=== PATIENT | female | born 1970 | race African-American/Black ===

== ENCOUNTER 2017-02-03 11:03 | Inpatient (IN) | payer MEDICAID, OTHER ==
[~2017-02-03] VITALS: Ht 160 cm; Wt 82.8 kg
[2017-02-03] VITALS (9 sets, daily range): BP systolic 95–116; BP diastolic 65–77
[2017-02-03] MEDS ORDERED: SODIUM CHLORIDE 0.9% 1,000 ML IVB ONE (11:14)
[2017-02-03] MEDS ORDERED: NALOXONE HCL 0.4 MG/ML VIAL IV ONE (11:15)
[2017-02-03 11:38] LABS: Basophils # (auto) 0 uL; Basophils % (auto) 0.5 % (0.0-2.0); Eosinophils # (auto) 0.2 uL; Eosinophils % (auto) 2.3 % (0.0-7.0); Hematocrit 36.7 % (36.0-46.0); Hemoglobin 12.3 g/dL (12.2-16.2); Lymphocytes # (auto) 4.5 uL; Lymphocytes % (auto) 48.3 % (10.0-50.0); Mean Corpuscular Hemoglobin 31.3 pg (28.0-32.0); Mean Corpuscular Hgb Conc. 33.4 g/dL (32.0-36.0); Mean Corpuscular Volume 93.7 fL (80.0-100.0); Mean Platelet Volume 8.8 fL (7.4-10.4); Monocytes # (auto) 0.7 uL; Monocytes % (auto) 7.8 % (0.0-12.0); Neutrophils # (auto) 3.8 uL; Neutrophils % (auto) 41.1 % (37.0-80.0); Platelet Count (auto) 311 10^3/uL (140-450); Red Cell Distribution Width 13.9 % (11.6-16.0); White Blood Cell 9.2 10^3/uL (4.4-10.8)
[2017-02-03 11:51] LABS: Urine Bilirubin Negative (Negative); Urine Blood TRACE /uL (Negative); Urine Color Yellow (Yellow); Urine Glucose Normal (Normal); Urine Ketone Negative (Negative); Urine Mucus FEW (None Seen); Urine Nitrite Negative (Negative); Urine RBC 2 /hpf (0 - 4); Urine Squamous Epithelial Cell FEW /hpf (<5); Urine Urobilinogen Normal (Negative); Urine pH 5.5 (5.0-8.0)
[2017-02-03 11:52] LABS: Partial Thromboplastin Time 23.5 sec (22.64-33.71)
[2017-02-03 12:01] LABS: Lactic Acid w/Reflex 4.6 mmol/L (0.4-2.0)
[2017-02-03 12:09] LABS: Anion Gap 11 (5-15); BUN/Creatinine Ratio 14.3; Blood Urea Nitrogen 18 mg/dL (7-18); Carbon Dioxide 21 mmol/L (21-32); Chloride 111 mmol/L (98-107); Glucose 102 mg/dL (74-106); Sodium 143 mmol/L (136-145)
[2017-02-03 12:10] LABS: Albumin 3.1 g/dL (3.4-5.0); Alkaline Phosphatase 38 U/L (45-117); Aspartate Aminotransferase 26 U/L (15-37); Bilirubin, Total 0.5 mg/dL (0.2-1.0); Calcium 9.1 mg/dL (8.5-10.1); GFR African American 59 mL/min; GFR Non-African American 49 mL/min; Total Protein 8.2 g/dL (6.4-8.2)
[2017-02-03 12:12] LABS: INR 1.18 (0.9-1.15); Prothrombin Time 12.7 sec (9.37-12.3)
[2017-02-03 12:22] LABS: Potassium 2.8 mmol/L (3.5-5.1)
[2017-02-03 12:32] LABS: REFLEX LACTIC ACID YES OR NO YES
[2017-02-03] MEDS ORDERED: SODIUM CHLORIDE 0.9% 1,000 ML IV ONE (12:39)
[2017-02-03] MEDS ORDERED: SODIUM CHLORIDE 0.9% 250 ML IV ONE (12:39)
[2017-02-03] MEDS ORDERED: PIPERACILLIN-TAZOB 3.375GM 100 ML IV ONE (12:45)
[2017-02-03] MEDS ORDERED: metroNIDAZOLE 500MG/100ML 100 ML IV ONE (12:45)
[2017-02-03] MEDS ORDERED: ENOXAPARIN SOD 80 MG/0.8ML SYRINGE SC ONE (12:45)
[2017-02-03] MEDS ORDERED: cefTRIAXone 1GM/50ML D5W 50 ML IV ONE (13:15)
[2017-02-03] MEDS ORDERED: MORPHINE SULF INJ 2 MG/ML SYRINGE 1ML IV PRN (13:15)
[2017-02-03] MEDS ORDERED: LEVETIRACETAM INJ 500 MG in SODIUM CHL 0.9% 100 ML IV ONE (13:15)
[2017-02-03] MEDS ORDERED: NITROGLYCERIN 0.4 MG SL TAB SL PRN (13:15)
[2017-02-03] MEDS ORDERED: LORazepam 2MG/ML-1ML VIAL IV PRN (13:15)
[2017-02-03] MEDS ORDERED: ONDANSETRON HCL 4 MG/2 ML VIAL IV PRN (13:15)
[2017-02-03] MEDS: POTASSIUM CHL 20MEQ/100ML 100 ML IV SCH ×3 (13:40→16:15)
[2017-02-03] MEDS ORDERED: GEMF600T3 PO (15:25)
[2017-02-03] MEDS ORDERED: [UNRECOGNIZED DRUG - CODE] PO (15:25)
[2017-02-03] MEDS ORDERED: AMLO5TAB2 PO (15:25)
[2017-02-03] MEDS ORDERED: BENA20TA4 PO (15:25)
[2017-02-03] MEDS ORDERED: HYDR25TA4 PO (15:25)
[2017-02-03] MEDS ORDERED: METO25TA5 PO (15:25)
[2017-02-03] MEDS ORDERED: FERR325T PO (15:26)
[2017-02-03] MEDS ORDERED: VANCOMYCIN PER PHARMACY 0 MG IV SCH (15:30)
[2017-02-03] MEDS: SODIUM CHLORIDE 0.9% 1,000 ML IV SCH (16:28)
[2017-02-03] MEDS: VANCOMYCIN 750 MG in D5W 5% 250 ML IV SCH (17:23)
[2017-02-03] MEDS: MORPHINE SULF INJ 2 MG/ML SYRINGE 1ML IV PRN (18:24)
[2017-02-03] MEDS: LEVETIRACETAM INJ 500 MG in SODIUM CHL 0.9% 100 ML IV SCH (21:57)
[2017-02-04] VITALS (69 sets, daily range): BP systolic 97–134; BP diastolic 51–93
[2017-02-04 03:49] LABS: Basophils # (auto) 0 uL; Basophils % (auto) 0.3 % (0.0-2.0); Eosinophils # (auto) 0 uL; Eosinophils % (auto) 0.3 % (0.0-7.0); Hemoglobin 11.2 g/dL (12.2-16.2); Lymphocytes # (auto) 1.9 uL; Lymphocytes % (auto) 22.7 % (10.0-50.0); Mean Corpuscular Hgb Conc. 32.9 g/dL (32.0-36.0); Mean Corpuscular Volume 94.2 fL (80.0-100.0); Mean Platelet Volume 8.6 fL (7.4-10.4); Monocytes # (auto) 0.7 uL; Monocytes % (auto) 8.4 % (0.0-12.0); Neutrophils # (auto) 5.6 uL; Neutrophils % (auto) 68.3 % (37.0-80.0); Platelet Count (auto) 302 10^3/uL (140-450); Red Cell Distribution Width 14.2 % (11.6-16.0); White Blood Cell 8.2 10^3/uL (4.4-10.8)
[2017-02-04 04:12] LABS: BUN/Creatinine Ratio 14.4; Bilirubin, Total 0.6 mg/dL (0.2-1.0); Calcium 8.1 mg/dL (8.5-10.1); Potassium 3.1 mmol/L (3.5-5.1); Total Protein 7.8 g/dL (6.4-8.2)
[2017-02-04] MEDS: VANCOMYCIN 750 MG in D5W 5% 250 ML IV SCH (05:24)
[2017-02-04] MEDS: SODIUM CHLORIDE 0.9% 1,000 ML IV SCH ×2 (05:52→08:21)
[2017-02-04] MEDS: POTASSIUM CHL 20MEQ/100ML 100 ML IV SCH ×4 (08:20→23:03)
[2017-02-04] MEDS ORDERED: cefTRIAXone 1GM/50ML D5W 50 ML IV SCH (09:00)
[2017-02-04] MEDS: LEVETIRACETAM INJ 500 MG in SODIUM CHL 0.9% 100 ML IV SCH ×2 (09:51→22:11)
[2017-02-04] MEDS ORDERED: ACETAMINOPHEN 325 MG TAB PO PRN (11:15)
[2017-02-04] MEDS ORDERED: ENOXAPARIN SOD 100 MG/1 ML SYRINGE SC SCH (11:15)
[2017-02-04] MEDS: ASPirin 81 mg TAB PO SCH (11:15)
[2017-02-04] MEDS ORDERED: POTASSIUM CHL 20MEQ/100ML 100 ML IV ONE (11:15)
[2017-02-04] MEDS ORDERED: POTASSIUM CHL 10% (20 MEQ/15ML) ORAL SOLN PO SCH (14:00)
[2017-02-04] MEDS ORDERED: IOHEXOL 350 MG/ML 100ML IJ ONE (16:42)
[2017-02-04 17:24] LABS: Cholesterol 117 mg/dL (< 200); HDL Cholesterol 32 mg/dL (40-59); LDL Cholesterol 85 mg/dL (< 100); Triglycerides 126 mg/dL (< 150)
[2017-02-04 19:17] LABS: BUN/Creatinine Ratio 11.5; Calcium 8.2 mg/dL (8.5-10.1); Potassium 3.3 mmol/L (3.5-5.1)
[2017-02-04] MEDS: MORPHINE SULF INJ 2 MG/ML SYRINGE 1ML IV PRN (20:44)
[2017-02-04] MEDS: METOPROLOL TARTRATE 25 MG TAB PO SCH (22:00)
[2017-02-05] VITALS (36 sets, daily range): BP systolic 103–128; BP diastolic 62–96
[2017-02-05 03:47] LABS: Basophils # (auto) 0 uL; Basophils % (auto) 0.5 % (0.0-2.0); Eosinophils # (auto) 0 uL; Eosinophils % (auto) 0.1 % (0.0-7.0); Hematocrit 34.2 % (36.0-46.0); Hemoglobin 11.2 g/dL (12.2-16.2); Lymphocytes # (auto) 1.8 uL; Lymphocytes % (auto) 20.7 % (10.0-50.0); Mean Corpuscular Hgb Conc. 32.8 g/dL (32.0-36.0); Mean Corpuscular Volume 94.5 fL (80.0-100.0); Monocytes # (auto) 0.7 uL; Neutrophils # (auto) 6.1 uL; Neutrophils % (auto) 70.7 % (37.0-80.0); Platelet Count (auto) 292 10^3/uL (140-450); Red Cell Distribution Width 13.9 % (11.6-16.0); White Blood Cell 8.7 10^3/uL (4.4-10.8)
[2017-02-05 04:10] LABS: BUN/Creatinine Ratio 12.7; Calcium 8.5 mg/dL (8.5-10.1); Potassium 3.8 mmol/L (3.5-5.1)
[2017-02-05] MEDS: SODIUM CHLORIDE 0.9% 1,000 ML IV SCH (09:36)
[2017-02-05] MEDS: LEVETIRACETAM INJ 500 MG in SODIUM CHL 0.9% 100 ML IV SCH ×2 (09:36→22:25)
[2017-02-05] MEDS: METOPROLOL TARTRATE 25 MG TAB PO SCH ×2 (09:38→22:00)
[2017-02-05] MEDS: ASPirin 81 mg TAB PO SCH ×2 (09:38→11:05)
[2017-02-05] MEDS: ATORVASTATIN 20 MG TAB PO SCH (22:00)
[2017-02-06] VITALS (37 sets, daily range): BP systolic 103–132; BP diastolic 73–101
[2017-02-06 04:02] LABS: Basophils # (auto) 0.3 uL; Basophils % (auto) 2.5 % (0.0-2.0); Eosinophils # (auto) 0 uL; Eosinophils % (auto) 0.4 % (0.0-7.0); Hematocrit 34.6 % (36.0-46.0); Hemoglobin 11.5 g/dL (12.2-16.2); Lymphocytes # (auto) 2.6 uL; Lymphocytes % (auto) 26.4 % (10.0-50.0); Mean Corpuscular Hemoglobin 31.5 pg (28.0-32.0); Mean Corpuscular Hgb Conc. 33.1 g/dL (32.0-36.0); Monocytes # (auto) 0.8 uL; Monocytes % (auto) 8.3 % (0.0-12.0); Neutrophils # (auto) 6.2 uL; Neutrophils % (auto) 62.4 % (37.0-80.0); Platelet Count (auto) 305 10^3/uL (140-450); Red Cell Distribution Width 13.8 % (11.6-16.0)
[2017-02-06 04:23] LABS: Potassium 3.3 mmol/L (3.5-5.1)
[2017-02-06 04:30] LABS: BUN/Creatinine Ratio 12.8; Calcium 8.5 mg/dL (8.5-10.1); Magnesium 2.1 mg/dL (1.6-2.6)
[2017-02-06] MEDS ORDERED: LORazepam 2MG/ML-1ML VIAL ONE (06:20)
[2017-02-06] MEDS ORDERED: POTASSIUM CHL 20 Meq TABLET PO ONE ×2 (06:21→06:30)
[2017-02-06] MEDS ORDERED: LORazepam 2MG/ML-1ML VIAL IV ONE (06:30)
[2017-02-06] MEDS: METOPROLOL TARTRATE 25 MG TAB PO SCH ×2 (10:41→21:52)
[2017-02-06] MEDS: ASPirin 81 mg TAB PO SCH (10:41)
[2017-02-06] MEDS: MORPHINE SULF INJ 2 MG/ML SYRINGE 1ML IV PRN ×2 (11:01→22:02)
[2017-02-06] MEDS: LEVETIRACETAM INJ 500 MG in SODIUM CHL 0.9% 100 ML IV SCH (14:49)
[2017-02-06] MEDS: ATORVASTATIN 20 MG TAB PO SCH (21:52)
[2017-02-07] VITALS (22 sets, daily range): BP systolic 117–143; BP diastolic 80–94
[2017-02-07] MEDS: LEVETIRACETAM INJ 500 MG in SODIUM CHL 0.9% 100 ML IV SCH ×2 (03:00→15:00)
[2017-02-07 03:47] LABS: Basophils # (auto) 0 uL; Basophils % (auto) 0.3 % (0.0-2.0); Eosinophils # (auto) 0.1 uL; Eosinophils % (auto) 0.6 % (0.0-7.0); Hematocrit 34.6 % (36.0-46.0); Hemoglobin 11.6 g/dL (12.2-16.2); Lymphocytes # (auto) 3.1 uL; Lymphocytes % (auto) 33.7 % (10.0-50.0); Mean Corpuscular Hemoglobin 31.5 pg (28.0-32.0); Mean Corpuscular Hgb Conc. 33.4 g/dL (32.0-36.0); Mean Corpuscular Volume 94.1 fL (80.0-100.0); Mean Platelet Volume 9.5 fL (7.4-10.4); Monocytes # (auto) 0.4 uL; Neutrophils # (auto) 5.7 uL; Neutrophils % (auto) 61.4 % (37.0-80.0); Platelet Count (auto) 280 10^3/uL (140-450); Red Cell Distribution Width 14.6 % (11.6-16.0); White Blood Cell 9.3 10^3/uL (4.4-10.8)
[2017-02-07 04:06] LABS: Calcium 8.4 mg/dL (8.5-10.1); Magnesium 2.1 mg/dL (1.6-2.6); Potassium 3.7 mmol/L (3.5-5.1)
[2017-02-07 04:09] LABS: BUN/Creatinine Ratio 16.1
[2017-02-07] MEDS: ASPirin 81 mg TAB PO SCH (09:34)
[2017-02-07] MEDS: METOPROLOL TARTRATE 25 MG TAB PO SCH ×2 (09:34→21:13)
[2017-02-07] MEDS: ALPRAZolam 0.25 MG TAB PO PRN ×2 (10:48→23:02)
[2017-02-07] MEDS: MORPHINE SULF INJ 2 MG/ML SYRINGE 1ML IV PRN (17:09)
[2017-02-07] MEDS: ATORVASTATIN 20 MG TAB PO SCH (21:12)
[2017-02-07] MEDS ORDERED: ALBUTEROL SULF 2.5 MG/0.5ML(0.5%) NEB SOLN NEB PRN ×2 (23:30)
[2017-02-07] MEDS ORDERED: ALBUTEROL SULF 2.5 MG/0.5ML(0.5%) NEB SOLN ONE (23:39)
[2017-02-07] MEDS ORDERED: IPRATROPIUM BROM 0.5 MG/2.5ML INH SOL ONE (23:54)
[2017-02-08] VITALS (8 sets, daily range): BP systolic 119–134; BP diastolic 82–109
[2017-02-08] MEDS: ALBUTEROL SULF 2.5 MG/0.5ML(0.5%) NEB SOLN NEB PRN ×2 (00:04→11:09)
[2017-02-08] MEDS ORDERED: LEVETIRACETAM 500 MG/5ML INJ IV ONE (03:05)
[2017-02-08] MEDS: LEVETIRACETAM INJ 500 MG in SODIUM CHL 0.9% 100 ML IV SCH ×2 (03:16→15:36)
[2017-02-08] MEDS: ASPirin 81 mg TAB PO SCH (10:29)
[2017-02-08] MEDS: ALPRAZolam 0.25 MG TAB PO PRN (10:29)
[2017-02-08] MEDS: METOPROLOL TARTRATE 25 MG TAB PO SCH ×2 (10:31→22:05)
[2017-02-08] MEDS: IPRATROPIUM BROM 0.5 MG/2.5ML INH SOL NEB PRN (11:09)
[2017-02-08] MEDS: MORPHINE SULF INJ 2 MG/ML SYRINGE 1ML IV PRN ×2 (15:51→22:06)
[2017-02-08] MEDS: ATORVASTATIN 20 MG TAB PO SCH (22:04)
[2017-02-09] MEDS: LEVETIRACETAM INJ 500 MG in SODIUM CHL 0.9% 100 ML IV SCH ×2 (02:42→15:00)
[2017-02-09 04:00] VITALS: BP 130/90
[2017-02-09] MEDS: MORPHINE SULF INJ 2 MG/ML SYRINGE 1ML IV PRN ×2 (04:03→20:45)
[2017-02-09 08:00] VITALS: BP 128/89
[2017-02-09] MEDS: METOPROLOL TARTRATE 25 MG TAB PO SCH ×2 (09:34→21:53)
[2017-02-09] MEDS: ASPirin 81 mg TAB PO SCH (09:34)
[2017-02-09] MEDS: IPRATROPIUM BROM 0.5 MG/2.5ML INH SOL NEB PRN ×2 (09:38→19:20)
[2017-02-09] MEDS: ALBUTEROL SULF 2.5 MG/0.5ML(0.5%) NEB SOLN NEB PRN ×2 (09:38→19:20)
[2017-02-09 12:00] VITALS: BP 130/95
[2017-02-09] MEDS: ALPRAZolam 0.25 MG TAB PO PRN (13:00)
[2017-02-09 16:00] VITALS: BP 125/83
[2017-02-09 20:00] VITALS: BP 130/95
[2017-02-09] MEDS: ATORVASTATIN 20 MG TAB PO SCH (21:53)
[2017-02-09 23:18] VITALS: BP 130/95
== END 2017-02-09 22:10 | DRG 45 ==
LOC: EDBD 11:03 → ER 11:03 → TELE 11:04 → ICU WEST 21:30 → TELE-WESTW 02-04 13:20 → ICU WEST 02-04 15:45 → DOU IN ICU 02-07 12:35
PROVIDERS: ADMIT Internal Medicine; ATTEND Internal Medicine
DX: I63.9 Cerebral infarction, unspecified (principal); I21.4 Non-ST elevation (NSTEMI) myocardial infarction; G93.41 Metabolic encephalopathy; D68.9 Coagulation defect, unspecified; E87.2 Acidosis; E44.0 Moderate protein-calorie malnutrition; N18.3 Chronic kidney disease, stage 3 (moderate); I42.9 Cardiomyopathy, unspecified; F17.210 Nicotine dependence, cigarettes, uncomplicated; D50.9 Iron deficiency anemia, unspecified; I27.2 Other secondary pulmonary hypertension; E87.6 Hypokalemia; I12.9 Hypertensive chronic kidney disease with stage 1 through stage 4 chronic kidney disease, or unspecified chronic kidney disease; N39.0 Urinary tract infection, site not specified; E66.9 Obesity, unspecified; E78.5 Hyperlipidemia, unspecified; E78.1 Pure hyperglyceridemia; G81.94 Hemiplegia, unspecified affecting left nondominant side; F41.9 Anxiety disorder, unspecified; G40.409 Other generalized epilepsy and epileptic syndromes, not intractable, without status epilepticus; Z79.82 Long term (current) use of aspirin; Z68.32 Body mass index [BMI] 32.0-32.9, adult; Z82.49 Family history of ischemic heart disease and other diseases of the circulatory system
CPT/HCPCS: 36415; 36600; 51702; 70450; 70496; 70498; 70551; 71010; 80048; 80053; 80061; 80202; 80320; 81001; 82550; 82805; 82962; 83036; 83605; 83735; 84484; 85025; 85610; 85730; 87040; 87081; 87086; 92523; 92610; 93005; 93306; 93971; 94640; 95819; 96361; 96365; 96368; 96372; 96375; 99291; G0434; J0696; J2405; J3480; J3490; J7060

== ENCOUNTER 2017-05-24 18:42 | Inpatient (IN) | payer MEDICAID ==
[~2017-05-24] VITALS: Ht 160 cm; Wt 63.4 kg
[~2017-05-24 18:42] MED LIST: FERR325T PO; GEMF600T3 PO; [UNRECOGNIZED DRUG - CODE] PO
[2017-05-24 19:16] LABS: Basophils # (auto) 0 uL; CONDITION Y; DEFINITIVE SEE PRINTOUT; Eosinophils # (auto) 0.1 uL; Eosinophils % (auto) 2.1 % (0.0-7.0); Hematocrit 35.5 % (36.0-46.0); Hemoglobin 11.5 g/dL (12.2-16.2); Lymphocytes # (auto) 2.4 uL; Lymphocytes % (auto) 53.2 % (10.0-50.0); Mean Corpuscular Hemoglobin 29.3 pg (28.0-32.0); Mean Corpuscular Hgb Conc. 32.4 g/dL (32.0-36.0); Mean Corpuscular Volume 90.4 fL (80.0-100.0); Mean Platelet Volume 8.1 fL (7.4-10.4); Monocytes # (auto) 0.3 uL; Monocytes % (auto) 7.6 % (0.0-12.0); Neutrophils # (auto) 1.6 uL; Neutrophils % (auto) 36.1 % (37.0-80.0); Platelet Count (auto) 296 10^3/uL (140-450); White Blood Cell 4.4 10^3/uL (4.4-10.8)
[2017-05-24 19:18] LABS: Red Cell Distribution Width 21.2 % (11.6-16.0)
[2017-05-24 19:37] LABS: Albumin 2.5 g/dL (3.4-5.0); BUN/Creatinine Ratio 14.6; Bilirubin, Total 0.8 mg/dL (0.2-1.0); Magnesium 1.4 mg/dL (1.6-2.6); Potassium 3.3 mmol/L (3.5-5.1); Total Protein 8.8 g/dL (6.4-8.2)
[2017-05-24 20:38] LABS: Anisocytosis Moderate; Platelet Estimate Adequate
[2017-05-24] MEDS ORDERED: POTASSIUM CHL 20 Meq TABLET PO ONE ×2 (20:45→23:00)
[2017-05-24] MEDS ORDERED: ASPirin-EC 81 mg tab PO ONE (20:45)
[2017-05-24] MEDS: MAGNESIUM SULFATE 1GM/100ML 100 ML IV SCH ×2 (21:14→21:53)
[2017-05-24 21:20] LABS: Temperature: 22.2 C (20.0-25.0)
[2017-05-24] MEDS ORDERED: IPRATROPIUM BROM 0.5 MG/2.5ML INH SOL NEB PRN (22:00)
[2017-05-24] MEDS ORDERED: NITROGLYCERIN 0.4 MG SL TAB SL PRN ×2 (22:00→22:15)
[2017-05-24] MEDS ORDERED: ENOXAPARIN SOD 100 MG/1 ML SYRINGE SC ONE (22:00)
[2017-05-24] MEDS: LEVETIRACETAM 500 MG TAB PO SCH (22:00)
[2017-05-24] MEDS ORDERED: MORPHINE SULF INJ 2 MG/ML SYRINGE 1ML IV PRN ×2 (22:00→22:15)
[2017-05-24] MEDS ORDERED: ALBUTEROL SULF 2.5 MG/0.5ML(0.5%) NEB SOLN NEB PRN (22:00)
[2017-05-24] MEDS: METOPROLOL TARTRATE 25 MG TAB PO SCH (22:00)
[2017-05-24] MEDS ORDERED: FUROSEMIDE 20 MG/2 ML VIAL IV ONE (22:00)
[2017-05-24] MEDS ORDERED: ATORVASTATIN 20 MG TAB PO SCH (22:00)
[2017-05-24] MEDS ORDERED: IOHEXOL 350 MG/ML 100ML IJ ONE (22:09)
[2017-05-24] MEDS ORDERED: TEMAZEPAM 15 MG CAP PO PRN (22:15)
[2017-05-24] MEDS ORDERED: ACETAMINOPHEN 325 MG TAB PO PRN (22:15)
[2017-05-24] MEDS ORDERED: HYDROcodone-ACET 5/325MG TAB PO PRN (22:15)
[2017-05-24] MEDS ORDERED: PANTOPRAZOLE SODIUM 40 MG/10 ML VIAL IV ONE (22:15)
[2017-05-24] MEDS ORDERED: ONDANSETRON HCL 4 MG/2 ML VIAL IV PRN (22:15)
[2017-05-24 22:38] LABS: INR 1.34 (0.9-1.15)
[2017-05-24 22:50] LABS: Prothrombin Time 14.7 sec (9.37-12.3)
[2017-05-25] MEDS ORDERED: FUROSEMIDE 20 MG/2 ML VIAL IV ONE (02:00)
[2017-05-25 03:31] LABS: CONDITION Y; DEFINITIVE SEE PRINTOUT; Hematocrit 34.8 % (36.0-46.0); Hemoglobin 11.1 g/dL (12.2-16.2); Mean Corpuscular Hemoglobin 28.7 pg (28.0-32.0); Mean Corpuscular Hgb Conc. 31.8 g/dL (32.0-36.0); Mean Corpuscular Volume 90.3 fL (80.0-100.0); Mean Platelet Volume 8.6 fL (7.4-10.4); Platelet Count (auto) 285 10^3/uL (140-450); White Blood Cell 4.9 10^3/uL (4.4-10.8)
[2017-05-25 03:37] LABS: Albumin 2.4 g/dL (3.4-5.0); BUN/Creatinine Ratio 13.2; Calcium 7.9 mg/dL (8.5-10.1); Potassium 3.7 mmol/L (3.5-5.1)
[2017-05-25 03:39] LABS: Bilirubin, Total 0.8 mg/dL (0.2-1.0); Total Protein 8.1 g/dL (6.4-8.2)
[2017-05-25 03:49] VITALS: BP 105/51
[2017-05-25 04:02] LABS: Red Cell Distribution Width 21.2 % (11.6-16.0)
[2017-05-25 04:03] LABS: Metamyelocytes % 0; Myelocytes % 0; Promyelocytes % 0; Reactive Lymphocytes 0
[2017-05-25 04:43] LABS: Platelet Estimate Adequate
[2017-05-25 04:44] LABS: Anisocytosis Slight
[2017-05-25] MEDS: LEVETIRACETAM 500 MG TAB PO SCH (09:37)
[2017-05-25] MEDS: METOPROLOL TARTRATE 25 MG TAB PO SCH (09:37)
[2017-05-25] MEDS ORDERED: ENOXAPARIN SOD 40 MG/0.4 ML SYRINGE SC SCH (10:00)
[2017-05-25] MEDS ORDERED: LISINOPRIL 5 MG TAB PO SCH (10:00)
[2017-05-25] MEDS ORDERED: PANTOPRAZOLE SODIUM 40 MG/10 ML VIAL IV SCH (10:00)
[2017-05-25] MEDS ORDERED: FUROSEMIDE 40 MG TAB PO SCH (10:00)
[2017-05-25 13:51] LABS: Urine Bilirubin Negative (Negative); Urine Color Yellow (Yellow); Urine Glucose Normal (Normal); Urine Ketone Negative (Negative); Urine Nitrite Negative (Negative); Urine RBC 27 /hpf (0 - 4); Urine Squamous Epithelial Cell FEW /hpf (<5); Urine Urobilinogen Normal (Negative)
[2017-05-25 13:52] LABS: Urine Blood 2+ /uL (Negative)
[2017-05-25 18:15] VITALS: BP 100/62
[2017-05-25 19:57] VITALS: BP 100/76
== END 2017-05-25 21:05 | disposition left against medical advice (07) | DRG 194 ==
LOC: ER 18:44 → TELE 18:45 → DOU IN ICU 05-25 18:10
PROVIDERS: ADMIT Internal Medicine; ATTEND Internal Medicine Pulmonary Disease
DX: I50.43 Acute on chronic combined systolic (congestive) and diastolic (congestive) heart failure (principal); I21.4 Non-ST elevation (NSTEMI) myocardial infarction; E43 Unspecified severe protein-calorie malnutrition; I27.2 Other secondary pulmonary hypertension; R18.8 Other ascites; I69.354 Hemiplegia and hemiparesis following cerebral infarction affecting left non-dominant side; E83.42 Hypomagnesemia; I11.0 Hypertensive heart disease with heart failure; I08.0 Rheumatic disorders of both mitral and aortic valves; F17.210 Nicotine dependence, cigarettes, uncomplicated; D64.9 Anemia, unspecified; E87.6 Hypokalemia; J98.11 Atelectasis; I25.110 Atherosclerotic heart disease of native coronary artery with unstable angina pectoris; Z82.49 Family history of ischemic heart disease and other diseases of the circulatory system; Z68.24 Body mass index [BMI] 24.0-24.9, adult
CPT/HCPCS: 36415; 71010; 71250; 71275; 80053; 81001; 83735; 83880; 84484; 85007; 85025; 85027; 85379; 85610; 85730; 93005; 93970; 94761; 96361; 96372; 96374; 96375; C9113

== ENCOUNTER 2018-06-29 00:45 | Inpatient (IN) | payer MEDICAID ==
[2018-06-29] VITALS (17 sets, daily range): BP systolic 89–115; BP diastolic 55–81
[~2018-06-29] VITALS: Ht 157.5 cm; Wt 61.3 kg
[~2018-06-29 00:45] MED LIST changes: +ACET1SOL8 PO; +FERR-20 PO; -FERR325T PO; -GEMF600T3 PO; +GEMF600T7 PO; -[UNRECOGNIZED DRUG - CODE] PO
[2018-06-29 01:12] LABS: Basophils # (auto) 0 uL; Basophils % (auto) 0.3 % (0.0-2.0); Eosinophils # (auto) 0.1 uL; Eosinophils % (auto) 2.5 % (0.0-7.0); Hematocrit 44.4 % (36.0-46.0); Hemoglobin 14.3 g/dL (12.2-16.2); Lymphocytes # (auto) 2.2 uL; Mean Corpuscular Hgb Conc. 32.3 g/dL (32.0-36.0); Mean Corpuscular Volume 96.1 fL (80.0-100.0); Monocytes # (auto) 0.7 uL; Monocytes % (auto) 13.4 % (0.0-12.0); Neutrophils # (auto) 2.5 uL; Neutrophils % (auto) 43.8 % (37.0-80.0); Nucleated Red Blood Cells % 0.2 %; Platelet Count (auto) 237 10^3/uL (140-450); Red Blood Cells 4.63 10^6/uL (4.0-5.20); Red Cell Distribution Width 15.3 % (11.8-14.3); White Blood Cell 5.6 10^3/uL (4.4-10.8)
[2018-06-29] MEDS ORDERED: HYDROmorphone HCL 2 MG/ML VL ONE (01:16)
[2018-06-29] MEDS ORDERED: ONDANSETRON HCL 4 MG/2 ML VIAL ONE (01:16)
[2018-06-29] MEDS ORDERED: NOREPINEPHRINE 8 MG/250ML KIT 250 ML IV ONE (01:28)
[2018-06-29 01:29] LABS: INR 1.25 (0.9-1.15); Prothrombin Time 13.2 sec (9.27-12.13)
[2018-06-29] MEDS: NOREPINEPHRINE 8 MG/250ML KIT 250 ML IV SCH (01:30)
[2018-06-29 01:33] LABS: Albumin 3.2 g/dL (3.4-5.0); BUN/Creatinine Ratio 16.3; Calcium 8.8 mg/dL (8.5-10.1); Potassium 3.4 mmol/L (3.5-5.1)
[2018-06-29 01:38] LABS: Bilirubin, Total 1.4 mg/dL (0.2-1.0); Total Protein 5.9 g/dL (6.4-8.2)
[2018-06-29 01:46] LABS: Lactic Acid w/Reflex 2.4 mmol/L (0.4-2.0)
[2018-06-29] MEDS ORDERED: HYDROmorphone HCL 2 MG/ML VL IV ONE (02:00)
[2018-06-29] MEDS ORDERED: ONDANSETRON HCL 4 MG/2 ML VIAL IV ONE (02:00)
[2018-06-29 02:28] LABS: Urine Bacteria MOD /hpf (None Seen); Urine Blood TRACE /uL (Negative); Urine Hyaline Cast MANY /lpf (0 - 2); Urine Mucus FEW (None Seen); Urine Specific Gravity 1.025 (1.001-1.035); Urine WBC 8 /hpf (0 - 5)
[2018-06-29 02:46] LABS: Alcohol, Urine < 3.0 mg/dL (0-5); Amphetamine Screen, Urine NEGATIVE (NEGATIVE); Barbiturate Scree,Urine NEGATIVE (NEGATIVE); Benzodiazephine Screen, Urine NEGATIVE (NEGATIVE); Cannabinoid Screen, Urine POSITIVE (NEGATIVE); Cocaine Screen, Urine NEGATIVE (NEGATIVE); Opiate Scree,Urine NEGATIVE (NEGATIVE); Phencyclidine Screen, Urine NEGATIVE (NEGATIVE)
[2018-06-29] MEDS ORDERED: FUROSEMIDE 20 MG/2 ML VIAL IV ONE (04:45)
[2018-06-29] MEDS ORDERED: IOHEXOL 350 MG/ML 100ML IJ ONE (04:52)
[2018-06-29] MEDS ORDERED: cefTRIAXone 1GM/10ml IVPUSH 10 ML IV ONE (09:45)
[2018-06-29] MEDS ORDERED: POTASSIUM CHL 20 Meq TABLET PO ONE (09:45)
[2018-06-29] MEDS ORDERED: ACETAMINOPHEN/CODEINE#3 (300/30mg) TAB PO PRN (09:45)
[2018-06-29] MEDS ORDERED: MORPHINE SULF INJ 2 MG/ML SYRINGE 1ML IV PRN (10:00)
[2018-06-29] MEDS ORDERED: ACETAMINOPHEN 325 MG TAB PO PRN (10:00)
[2018-06-29] MEDS ORDERED: NITROGLYCERIN 0.4 MG SL TAB SL PRN (10:00)
[2018-06-29] MEDS ORDERED: TEMAZEPAM 15 MG CAP PO PRN (10:00)
[2018-06-29] MEDS: MULTIPLE VITAMIN TAB PO SCH (10:00)
[2018-06-29] MEDS ORDERED: DOCUSATE SOD 100 MG CAP PO PRN (10:00)
[2018-06-29] MEDS ORDERED: ONDANSETRON HCL 4 MG/2 ML VIAL IV PRN (10:00)
[2018-06-29] MEDS: FAMOTIDINE 20 MG TAB PO SCH ×2 (10:00→22:23)
[2018-06-29] MEDS ORDERED: VANCOMYCIN PER PHARMACY 0 MG IV SCH (10:15)
[2018-06-29] MEDS: FERROUS SULFATE 325 MG TAB PO SCH (10:38)
[2018-06-29] MEDS: GEMFIBROZIL 600 MG TAB PO SCH ×2 (10:45→22:23)
[2018-06-29] MEDS: FUROSEMIDE 40 MG/4 ML VIAL IV SCH (10:45)
[2018-06-29] MEDS: ENOXAPARIN SOD 40 MG/0.4 ML SYRINGE SC SCH (10:45)
[2018-06-29] MEDS ORDERED: VANCOMYCIN 1,250 MG in D5W 5% 250 ML IV SCH (11:00)
[2018-06-29] MEDS: MORPHINE SULF INJ 2 MG/ML SYRINGE 1ML IV PRN (12:05)
[2018-06-29] MEDS: Ensure Enlive Strawberry 8oz Bottle PO SCH ×2 (12:57→19:38)
[2018-06-29] MEDS: SODIUM CHLOR 0.9% PF (SALINE LOCK) 10ML VIAL/SYR IV SCH ×2 (14:02→22:23)
[2018-06-30] VITALS (90 sets, daily range): BP systolic 86–130; BP diastolic 44–84
[2018-06-30] MEDS: SODIUM CHLOR 0.9% PF (SALINE LOCK) 10ML VIAL/SYR IV SCH ×3 (05:49→23:59)
[2018-06-30 06:03] LABS: Basophils # (auto) 0.1 uL; Basophils % (auto) 1.3 % (0.0-2.0); Eosinophils # (auto) 0 uL; Eosinophils % (auto) 0.6 % (0.0-7.0); Hematocrit 43.3 % (36.0-46.0); Hemoglobin 14.4 g/dL (12.2-16.2); Lymphocytes # (auto) 1.5 uL; Lymphocytes % (auto) 25.5 % (10.0-50.0); Mean Corpuscular Hemoglobin 31.7 pg (28.0-32.0); Mean Corpuscular Hgb Conc. 33.2 g/dL (32.0-36.0); Mean Corpuscular Volume 95.7 fL (80.0-100.0); Monocytes # (auto) 0.9 uL; Monocytes % (auto) 15.2 % (0.0-12.0); Neutrophils # (auto) 3.4 uL; Neutrophils % (auto) 57.4 % (37.0-80.0); Nucleated Red Blood Cells % 0.3 %; Platelet Count (auto) 223 10^3/uL (140-450); Red Blood Cells 4.53 10^6/uL (4.0-5.20); Red Cell Distribution Width 15.2 % (11.8-14.3); White Blood Cell 5.9 10^3/uL (4.4-10.8)
[2018-06-30 06:39] LABS: Albumin 3.1 g/dL (3.4-5.0); Bilirubin, Total 1.3 mg/dL (0.2-1.0); Calcium 8.4 mg/dL (8.5-10.1); Potassium 3.5 mmol/L (3.5-5.1); Total Protein 5.5 g/dL (6.4-8.2)
[2018-06-30] MEDS: MORPHINE SULF INJ 2 MG/ML SYRINGE 1ML IV PRN (07:59)
[2018-06-30] MEDS: Ensure Enlive Strawberry 8oz Bottle PO SCH ×3 (08:27→18:00)
[2018-06-30] MEDS: FERROUS SULFATE 325 MG TAB PO SCH (09:24)
[2018-06-30] MEDS: FAMOTIDINE 20 MG TAB PO SCH ×2 (09:24→22:00)
[2018-06-30] MEDS: MULTIPLE VITAMIN TAB PO SCH (09:24)
[2018-06-30] MEDS: ENOXAPARIN SOD 40 MG/0.4 ML SYRINGE SC SCH (09:24)
[2018-06-30] MEDS: GEMFIBROZIL 600 MG TAB PO SCH ×2 (09:24→22:00)
[2018-06-30] MEDS: FUROSEMIDE 40 MG/4 ML VIAL IV SCH (09:25)
[2018-06-30] MEDS: cefTRIAXone 1GM/10ml IVPUSH 10 ML IV SCH (09:25)
[2018-06-30] MEDS: POTASSIUM CHL 10 Meq TABLET PO SCH (09:46)
[2018-06-30] MEDS ORDERED: VANCOMYCIN 1,250 MG in D5W 5% 250 ML IV SCH (12:30)
[2018-06-30] MEDS: NOREPINEPHRINE 8 MG/250ML KIT 250 ML IV SCH (12:41)
[2018-06-30] MEDS ORDERED: MIRT30TA PO (14:41)
[2018-06-30] MEDS ORDERED: METO25TA5 PO (14:41)
[2018-06-30] MEDS ORDERED: BUME2TAB3 PO (14:41)
[2018-06-30] MEDS ORDERED: BENA5TAB5 PO (14:41)
[2018-06-30] MEDS ORDERED: HEPARIN SODIUM (PORCINE) 5000 UNITS/ML 1ML VIAL IV ONE (18:15)
[2018-06-30] MEDS: HEPARIN DRIP/D5W 100UNITS/ML 250 ML IV SCH ×2 (18:36→18:43)
[2018-06-30 19:04] LABS: Basophils # (auto) 0.1 uL; Basophils % (auto) 0.9 % (0.0-2.0); Eosinophils # (auto) 0 uL; Eosinophils % (auto) 0.7 % (0.0-7.0); Hematocrit 44.5 % (36.0-46.0); Hemoglobin 14.9 g/dL (12.2-16.2); Lymphocytes # (auto) 1.1 uL; Lymphocytes % (auto) 15.9 % (10.0-50.0); Mean Corpuscular Hgb Conc. 33.4 g/dL (32.0-36.0); Mean Corpuscular Volume 95.6 fL (80.0-100.0); Monocytes # (auto) 1.1 uL; Monocytes % (auto) 15.7 % (0.0-12.0); Neutrophils # (auto) 4.6 uL; Neutrophils % (auto) 66.8 % (37.0-80.0); Nucleated Red Blood Cells % 0.1 %; Platelet Count (auto) 221 10^3/uL (140-450); Red Blood Cells 4.65 10^6/uL (4.0-5.20); Red Cell Distribution Width 15.3 % (11.8-14.3); White Blood Cell 6.8 10^3/uL (4.4-10.8)
[2018-06-30 19:19] LABS: INR 1.16 (0.9-1.15); Partial Thromboplastin Time 21.9 sec (23.78-33.04); Prothrombin Time 12.3 sec (9.27-12.13)
[2018-06-30] MEDS ORDERED: ATORVASTATIN 20 MG TAB PO SCH (22:00)
[2018-06-30] MEDS: ATORVASTATIN 20 MG TAB PO SCH (22:00)
[2018-06-30] MEDS ORDERED: IODIXANOL 320MG/ML 100ML BTL IV ONE (22:12)
[2018-06-30] MEDS ORDERED: LIDOCAINE 2%HCL (LOCAL ANESTH.) INJ 20ML MDV ONE (22:13)
[2018-06-30] MEDS ORDERED: ANGIOMAX 250 MG VIAL IV ONE (23:00)
[2018-06-30] MEDS ORDERED: fentaNYL CITRATE 100 MCG/2 ML VL ONE (23:01)
[2018-06-30] MEDS ORDERED: MIDAZOLAM HCL 1MG/1ML-2 ML VIAL ONE (23:01)
[2018-06-30] MEDS ORDERED: SODIUM CHL 0.9% 0 ML ONE (23:01)
[2018-06-30] MEDS: EPTIFIBATIDE DRIP(0.75MG/ML) 100 ML IV SCH (23:30)
[2018-06-30] MEDS ORDERED: EPTIFIBATIDE DRIP(0.75MG/ML) 100 ML IV ONE (23:40)
[2018-07-01] VITALS (92 sets, daily range): BP systolic 70–133; BP diastolic 29–99
[2018-07-01 01:28] LABS: INR 1.26 (0.9-1.15); Partial Thromboplastin Time 45.5 sec (23.78-33.04); Prothrombin Time 13.3 sec (9.27-12.13)
[2018-07-01] MEDS: NOREPINEPHRINE 8 MG/250ML KIT 250 ML IV SCH ×2 (02:00→18:18)
[2018-07-01 03:46] LABS: Basophils # (auto) 0 uL; Basophils % (auto) 0.6 % (0.0-2.0); Eosinophils # (auto) 0.1 uL; Eosinophils % (auto) 0.8 % (0.0-7.0); Hematocrit 42.8 % (36.0-46.0); Hemoglobin 13.9 g/dL (12.2-16.2); Lymphocytes # (auto) 1.5 uL; Mean Corpuscular Hemoglobin 30.7 pg (28.0-32.0); Mean Corpuscular Hgb Conc. 32.5 g/dL (32.0-36.0); Mean Corpuscular Volume 94.7 fL (80.0-100.0); Monocytes % (auto) 15.4 % (0.0-12.0); Neutrophils # (auto) 3.8 uL; Neutrophils % (auto) 60.2 % (37.0-80.0); Nucleated Red Blood Cells % 0.1 %; Platelet Count (auto) 202 10^3/uL (140-450); Red Blood Cells 4.52 10^6/uL (4.0-5.20); Red Cell Distribution Width 15.2 % (11.8-14.3); White Blood Cell 6.3 10^3/uL (4.4-10.8)
[2018-07-01 04:33] LABS: Albumin 2.6 g/dL (3.4-5.0); BUN/Creatinine Ratio 8.5; Calcium 8.4 mg/dL (8.5-10.1); Magnesium 1.6 mg/dL (1.6-2.6)
[2018-07-01 04:46] LABS: Bilirubin, Total 1.2 mg/dL (0.2-1.0); Total Protein 5.4 g/dL (6.4-8.2)
[2018-07-01] MEDS: SODIUM CHLOR 0.9% PF (SALINE LOCK) 10ML VIAL/SYR IV SCH ×3 (05:34→22:44)
[2018-07-01] MEDS: Ensure Enlive Strawberry 8oz Bottle PO SCH ×3 (08:00→18:00)
[2018-07-01] MEDS: EPTIFIBATIDE DRIP(0.75MG/ML) 100 ML IV SCH ×2 (08:19→19:30)
[2018-07-01 08:29] LABS: INR 1.22 (0.9-1.15); Partial Thromboplastin Time 55.8 sec (23.78-33.04); Prothrombin Time 12.9 sec (9.27-12.13)
[2018-07-01] MEDS: cefTRIAXone 1GM/10ml IVPUSH 10 ML IV SCH (09:44)
[2018-07-01] MEDS: FUROSEMIDE 40 MG/4 ML VIAL IV SCH (10:00)
[2018-07-01] MEDS: ASPirin-EC 81 mg tab PO SCH (10:00)
[2018-07-01] MEDS ORDERED: IODIXANOL 320MG/ML 100ML BTL IV ONE (10:06)
[2018-07-01] MEDS ORDERED: LIDOCAINE 2%HCL (LOCAL ANESTH.) INJ 20ML MDV ONE (10:07)
[2018-07-01] MEDS ORDERED: SODIUM CHL 0.9% 0 ML ONE (10:20)
[2018-07-01] MEDS ORDERED: fentaNYL CITRATE 100 MCG/2 ML VL ONE (10:20)
[2018-07-01] MEDS ORDERED: ANGIOMAX 250 MG VIAL IV ONE (10:20)
[2018-07-01] MEDS ORDERED: MIDAZOLAM HCL 1MG/1ML-2 ML VIAL ONE (10:20)
[2018-07-01] MEDS ORDERED: CLOPIDOGREL 300 MG TAB ONE (11:06)
[2018-07-01] MEDS ORDERED: guaiFENesin-DM 100/10mg/5ml SYR PO PRN (12:00)
[2018-07-01] MEDS: POTASSIUM CHL 10 Meq TABLET PO SCH (12:19)
[2018-07-01] MEDS: FERROUS SULFATE 325 MG TAB PO SCH (12:19)
[2018-07-01] MEDS: MULTIPLE VITAMIN TAB PO SCH (12:19)
[2018-07-01] MEDS: FAMOTIDINE 20 MG TAB PO SCH ×2 (12:20→22:42)
[2018-07-01] MEDS: GEMFIBROZIL 600 MG TAB PO SCH ×2 (12:20→22:43)
[2018-07-01] MEDS ORDERED: POTASSIUM CHL 20 Meq TABLET PO ONE ×2 (13:00→19:15)
[2018-07-01] MEDS ORDERED: MAGNESIUM SULFATE 1GM/100ML 100 ML IV ONE (14:00)
[2018-07-01 14:48] LABS: INR 1.2 (0.9-1.15); Partial Thromboplastin Time 51.7 sec (23.78-33.04); Prothrombin Time 12.7 sec (9.27-12.13)
[2018-07-01] MEDS: MORPHINE SULF INJ 2 MG/ML SYRINGE 1ML IV PRN ×2 (14:55)
[2018-07-01] MEDS: HYDROcodone-ACET 5/325MG TAB PO PRN (20:19)
[2018-07-01] MEDS: ATORVASTATIN 20 MG TAB PO SCH (22:44)
[2018-07-02] VITALS (91 sets, daily range): BP systolic 87–126; BP diastolic 31–91
[2018-07-02 01:20] LABS: BUN/Creatinine Ratio 10.7; Calcium 8.7 mg/dL (8.5-10.1); Potassium 3.5 mmol/L (3.5-5.1)
[2018-07-02 04:10] LABS: Basophils # (auto) 0.1 uL; Basophils % (auto) 1.2 % (0.0-2.0); Eosinophils # (auto) 0.1 uL; Eosinophils % (auto) 1.4 % (0.0-7.0); Hematocrit 42.6 % (36.0-46.0); Hemoglobin 14.1 g/dL (12.2-16.2); Lymphocytes # (auto) 1.6 uL; Lymphocytes % (auto) 22.4 % (10.0-50.0); Mean Corpuscular Hemoglobin 31.3 pg (28.0-32.0); Mean Corpuscular Hgb Conc. 33.1 g/dL (32.0-36.0); Mean Corpuscular Volume 94.6 fL (80.0-100.0); Monocytes # (auto) 0.9 uL; Monocytes % (auto) 13.5 % (0.0-12.0); Neutrophils # (auto) 4.3 uL; Neutrophils % (auto) 61.5 % (37.0-80.0); Nucleated Red Blood Cells % 0.1 %; Platelet Count (auto) 220 10^3/uL (140-450)
[2018-07-02 04:30] LABS: INR 1.13 (0.9-1.15); Partial Thromboplastin Time 29.2 sec (23.78-33.04)
[2018-07-02 06:23] LABS: Albumin 2.7 g/dL (3.4-5.0); BUN/Creatinine Ratio 11.1; Calcium 8.5 mg/dL (8.5-10.1); Potassium 3.7 mmol/L (3.5-5.1)
[2018-07-02 06:41] LABS: Bilirubin, Total 1.1 mg/dL (0.2-1.0); Total Protein 5.7 g/dL (6.4-8.2)
[2018-07-02] MEDS: SODIUM CHLOR 0.9% PF (SALINE LOCK) 10ML VIAL/SYR IV SCH ×3 (06:58→22:28)
[2018-07-02] MEDS: Ensure Enlive Strawberry 8oz Bottle PO SCH ×3 (08:00→18:00)
[2018-07-02] MEDS: cefTRIAXone 1GM/10ml IVPUSH 10 ML IV SCH (10:00)
[2018-07-02] MEDS: CLOPIDOGREL BISULFATE 75 MG TAB PO SCH (10:01)
[2018-07-02] MEDS: POTASSIUM CHL 10 Meq TABLET PO SCH (10:01)
[2018-07-02] MEDS: ASPirin-EC 81 mg tab PO SCH (10:01)
[2018-07-02] MEDS: FAMOTIDINE 20 MG TAB PO SCH ×2 (10:01→22:06)
[2018-07-02] MEDS: FERROUS SULFATE 325 MG TAB PO SCH (10:01)
[2018-07-02] MEDS: FUROSEMIDE 40 MG/4 ML VIAL IV SCH (10:01)
[2018-07-02] MEDS: MULTIPLE VITAMIN TAB PO SCH (10:01)
[2018-07-02] MEDS: GEMFIBROZIL 600 MG TAB PO SCH ×2 (10:03→20:00)
[2018-07-02] MEDS ORDERED: SODIUM CHLORIDE 0.9% 500 ML IV SCH (11:45)
[2018-07-02] MEDS: ATORVASTATIN 20 MG TAB PO SCH (22:06)
[2018-07-02] MEDS: MIRTAZAPINE 30 MG TAB PO SCH (22:06)
[2018-07-02] MEDS: HYDROcodone-ACET 5/325MG TAB PO PRN (22:27)
[2018-07-02] MEDS: MORPHINE SULF INJ 2 MG/ML SYRINGE 1ML IV PRN (23:20)
[2018-07-03] VITALS (47 sets, daily range): BP systolic 75–116; BP diastolic 33–75
[2018-07-03] MEDS ORDERED: ALBUMIN 5% 250 ML IV ONE (03:00)
[2018-07-03 04:16] LABS: Albumin 2.6 g/dL (3.4-5.0); Calcium 8.5 mg/dL (8.5-10.1); Potassium 3.3 mmol/L (3.5-5.1)
[2018-07-03 04:19] LABS: BUN/Creatinine Ratio 8.2
[2018-07-03 04:35] LABS: Bilirubin, Total 1.2 mg/dL (0.2-1.0); Total Protein 5.3 g/dL (6.4-8.2)
[2018-07-03] MEDS: SODIUM CHLOR 0.9% PF (SALINE LOCK) 10ML VIAL/SYR IV SCH ×2 (06:00→21:45)
[2018-07-03] MEDS: GEMFIBROZIL 600 MG TAB PO SCH ×2 (06:43→17:17)
[2018-07-03] MEDS ORDERED: POTASSIUM CHL 20 Meq TABLET PO ONE (06:45)
[2018-07-03] MEDS ORDERED: MORPHINE SULF INJ 2 MG/ML SYRINGE 1ML IV PRN (10:45)
[2018-07-03] MEDS: MULTIPLE VITAMIN TAB PO SCH (11:22)
[2018-07-03] MEDS: FERROUS SULFATE 325 MG TAB PO SCH (11:22)
[2018-07-03] MEDS: ASPirin-EC 81 mg tab PO SCH (11:24)
[2018-07-03] MEDS: CLOPIDOGREL BISULFATE 75 MG TAB PO SCH (11:24)
[2018-07-03] MEDS: POTASSIUM CHL 10 Meq TABLET PO SCH (11:25)
[2018-07-03] MEDS: Ensure Enlive Strawberry 8oz Bottle PO SCH ×3 (11:26→17:57)
[2018-07-03] MEDS: MIRTAZAPINE 30 MG TAB PO SCH (21:45)
[2018-07-03] MEDS: ATORVASTATIN 20 MG TAB PO SCH (21:45)
[2018-07-03] MEDS: HYDROcodone-ACET 5/325MG TAB PO PRN (21:53)
[2018-07-04] MEDS: MEPERIDINE HCL (25 MG/ML) 1ML VIAL IV PRN ×2 (00:31→10:36)
[2018-07-04 05:16] VITALS: BP 105/78
[2018-07-04] MEDS: SODIUM CHLOR 0.9% PF (SALINE LOCK) 10ML VIAL/SYR IV SCH ×2 (06:21→13:26)
[2018-07-04] MEDS: GEMFIBROZIL 600 MG TAB PO SCH (06:29)
[2018-07-04] MEDS: Ensure Enlive Strawberry 8oz Bottle PO SCH ×2 (08:00→12:00)
[2018-07-04] MEDS ORDERED: CLOP75TA28 PO (09:28)
[2018-07-04] MEDS ORDERED: ATOR20TA50 PO (09:28)
[2018-07-04] MEDS ORDERED: ASP81EC PO (09:28)
[2018-07-04] MEDS ORDERED: PANT40T PO (09:28)
[2018-07-04] MEDS ORDERED: POTA-167 PO (09:28)
[2018-07-04] MEDS ORDERED: BUME1TAB28 PO (09:52)
[2018-07-04] MEDS ORDERED: FUROSEMIDE 20 MG TAB PO SCH (10:00)
[2018-07-04] MEDS ORDERED: PANTOPRAZOLE 40 MG TAB PO SCH (10:00)
[2018-07-04] MEDS: FERROUS SULFATE 325 MG TAB PO SCH (10:15)
[2018-07-04] MEDS: MULTIPLE VITAMIN TAB PO SCH (10:15)
[2018-07-04] MEDS: ASPirin-EC 81 mg tab PO SCH (10:15)
[2018-07-04] MEDS: CLOPIDOGREL BISULFATE 75 MG TAB PO SCH (10:15)
[2018-07-04] MEDS: POTASSIUM CHL 10 Meq TABLET PO SCH (10:15)
[2018-07-04 10:42] VITALS: BP 114/94
[2018-07-04 12:00] VITALS: BP 108/86
[2018-07-04 15:58] LABS: BUN/Creatinine Ratio 10.3; Calcium 9.6 mg/dL (8.5-10.1); Potassium 3.6 mmol/L (3.5-5.1)
== END 2018-07-04 17:05 | disposition home health service (06) | DRG 710 ==
LOC: EDBD 00:45 → ER 00:45 → TELE 00:46 → ICU WEST 19:39 → TELE-CENTR 07-03 15:42
PROVIDERS: ADMIT Internal Medicine; ATTEND Internal Medicine
PROC: 4A023N7 Measurement of Cardiac Sampling and Pressure, Left Heart, Percutaneous Approach (ICD-10-PCS; principal; 2018-06-30)
PROC: B2111ZZ Fluoroscopy of Multiple Coronary Arteries using Low Osmolar Contrast (ICD-10-PCS; 2018-06-30)
PROC: B2151ZZ Fluoroscopy of Left Heart using Low Osmolar Contrast (ICD-10-PCS; 2018-06-30)
PROC: B41F1ZZ Fluoroscopy of Right Lower Extremity Arteries using Low Osmolar Contrast (ICD-10-PCS; 2018-06-30)
PROC: 027135Z Dilation of Coronary Artery, Two Arteries with Two Drug-eluting Intraluminal Devices, Percutaneous Approach (ICD-10-PCS; 2018-07-01)
DX: A41.9 Sepsis, unspecified organism (principal); I21.4 Non-ST elevation (NSTEMI) myocardial infarction; J96.20 Acute and chronic respiratory failure, unspecified whether with hypoxia or hypercapnia; R57.0 Cardiogenic shock; E44.0 Moderate protein-calorie malnutrition; G92 Toxic encephalopathy; D68.9 Coagulation defect, unspecified; C90.00 Multiple myeloma not having achieved remission; I08.3 Combined rheumatic disorders of mitral, aortic and tricuspid valves; I27.20 Pulmonary hypertension, unspecified; I44.2 Atrioventricular block, complete; I50.43 Acute on chronic combined systolic (congestive) and diastolic (congestive) heart failure; N39.0 Urinary tract infection, site not specified; E87.6 Hypokalemia; G40.909 Epilepsy, unspecified, not intractable, without status epilepticus; I13.0 Hypertensive heart and chronic kidney disease with heart failure and stage 1 through stage 4 chronic kidney disease, or unspecified chronic kidney disease; I25.10 Atherosclerotic heart disease of native coronary artery without angina pectoris; I25.5 Ischemic cardiomyopathy; N18.2 Chronic kidney disease, stage 2 (mild); I31.3 Pericardial effusion (noninflammatory); I42.0 Dilated cardiomyopathy; I44.30 Unspecified atrioventricular block; I69.354 Hemiplegia and hemiparesis following cerebral infarction affecting left non-dominant side; Z79.82 Long term (current) use of aspirin; Z79.899 Other long term (current) drug therapy; I25.2 Old myocardial infarction; Z82.49 Family history of ischemic heart disease and other diseases of the circulatory system; Z95.5 Presence of coronary angioplasty implant and graft; Z84.1 Family history of disorders of kidney and ureter; Z87.891 Personal history of nicotine dependence; Z68.24 Body mass index [BMI] 24.0-24.9, adult
CPT/HCPCS: 36415; 51702; 70450; 71045; 71275; 75710; 80048; 80053; 80061; 80307; 81001; 83605; 83735; 83880; 84132; 84484; 84550; 85025; 85379; 85610; 85730; 87040; 87081; 87086; 92928; 93005; 93306; 93458; 93886; 93970; 95819; 96365; 96366; 96375; 96376; 97110; 97163; 99152; 99291; A6257; C1874; C1887; J0696; J1642; J2250; J2405; J7060; Q9967

== ENCOUNTER 2018-11-18 02:06 | Inpatient (IN) | payer MEDICAID ==
[~2018-11-18] VITALS: Ht 162.6 cm; Wt 64.9 kg
[~2018-11-18 02:06] MED LIST changes: +ASP81EC PO; +ATOR20TA50 PO; +CLOP75TA28 PO; +MIRT30TA PO; +PANT40T PO
[2018-11-18 02:56] LABS: Basophils # (auto) 0.2 uL; Basophils % (auto) 3.8 % (0.0-2.0); Eosinophils # (auto) 0.1 uL; Eosinophils % (auto) 1.5 % (0.0-7.0); Hematocrit 42.6 % (36.0-46.0); Lymphocytes # (auto) 1.5 uL; Lymphocytes % (auto) 34.3 % (10.0-50.0); Mean Corpuscular Hemoglobin 31.2 pg (28.0-32.0); Mean Corpuscular Hgb Conc. 32.9 g/dL (32.0-36.0); Mean Corpuscular Volume 94.7 fL (80.0-100.0); Monocytes # (auto) 0.5 uL; Monocytes % (auto) 12.3 % (0.0-12.0); Neutrophils # (auto) 2.1 uL; Neutrophils % (auto) 48.1 % (37.0-80.0); Nucleated Red Blood Cells % 0.3 %; Platelet Count (auto) 178 10^3/uL (140-450); Red Blood Cells 4.49 10^6/uL (4.0-5.20); Red Cell Distribution Width 16.4 % (11.8-14.3); White Blood Cell 4.4 10^3/uL (4.4-10.8)
[2018-11-18 03:14] LABS: Albumin 3.4 g/dL (3.4-5.0); Calcium 8.6 mg/dL (8.5-10.1); Potassium 3.7 mmol/L (3.5-5.1)
[2018-11-18 03:19] LABS: BUN/Creatinine Ratio 20.2; Bilirubin, Total 1.1 mg/dL (0.2-1.0); Total Protein 6.3 g/dL (6.4-8.2)
[2018-11-18] MEDS ORDERED: ONDANSETRON HCL 4 MG/2 ML VIAL IV ONE (03:30)
[2018-11-18] MEDS ORDERED: HYDROmorphone HCL 2 MG/ML VL IV ONE (03:30)
[2018-11-18 04:12] LABS: Urine Bacteria FEW /hpf (None Seen); Urine Blood Negative /uL (Negative); Urine Hyaline Cast FEW /lpf (0 - 2); Urine Specific Gravity 1.013 (1.001-1.035); Urine WBC 5 /hpf (0 - 5)
[2018-11-18] MEDS ORDERED: TEMAZEPAM 15 MG CAP PO PRN (05:45)
[2018-11-18] MEDS ORDERED: NITROGLYCERIN 0.4 MG SL TAB SL PRN (05:45)
[2018-11-18] MEDS ORDERED: ACETAMINOPHEN 325 MG TAB PO PRN (05:45)
[2018-11-18] MEDS ORDERED: HYDROcodone-ACET 5/325MG TAB PO PRN (05:45)
[2018-11-18] MEDS ORDERED: ONDANSETRON HCL 4 MG/2 ML VIAL IV PRN (05:45)
[2018-11-18] MEDS ORDERED: MORPHINE SULFATE 4 MG/ML SYR/VIAL IV PRN (05:45)
[2018-11-18] MEDS ORDERED: FUROSEMIDE 20 MG/2 ML VIAL IV ONE (05:45)
[2018-11-18] MEDS ORDERED: ATORVASTATIN 20 MG TAB PO ONE (05:45)
[2018-11-18] MEDS ORDERED: FUROSEMIDE 20 MG/2 ML VIAL IV SCH (06:00)
[2018-11-18] MEDS ORDERED: cefTRIAXone 1GM/50ML D5W 50 ML IV SCH (09:00)
[2018-11-18] MEDS: METOPROLOL TARTRATE 25 MG TAB PO SCH ×2 (10:00→21:32)
[2018-11-18] MEDS: PANTOPRAZOLE 40 MG TAB PO SCH (10:13)
[2018-11-18] MEDS: CLOPIDOGREL BISULFATE 75 MG TAB PO SCH (10:13)
[2018-11-18] MEDS: ASPirin 81 mg TAB PO SCH (10:13)
--- NOTE | 2018-11-18 18:50 | NUR ---
Telemetry admit from ER MULUGETA MCDONNELL admitted to Telemetry unit after SBAR received. Patient oriented to Cheryl levy RN, unit, room, bed, and unit policies regarding patient care and visiting hours. Patient now on continuous telemetry monitoring, tele box # 5 and telemetry reading on arrival to unit is 78. Patient placed on bedside oxygen, weighed by bedscale and encouraged to call if they need something. All questions and concerns addressed, patient verbalized understanding.
--- NOTE | 2018-11-18 19:00 | NUR ---
Opening Shift Note Assumed care of the patient from the day shift RN. The patient is A&Ox4, no signs or symptoms of distress. Educated the patient on POC and patient verbalized understanding. The patient's call light is within reach and bed is in the lowest, locked position. Will round hourly and continue to monitor.
--- NOTE | 2018-11-18 19:10 | NUR ---
END OF SHIFT PATIENT RESTING IN BED. NO S/S OF DISTRESS. INSTRUCTED PATIENT TO CALL PRN. BED IN LOWEST LOCKED POSITION, CALL LIGHT WITHIN REACH. ENDORSED CARE TO MICHAEL NGUYEN.
[2018-11-18 19:48] LABS: BUN/Creatinine Ratio 18.9; Calcium 8.2 mg/dL (8.5-10.1); Potassium 4.1 mmol/L (3.5-5.1)
[2018-11-18 20:00] VITALS: BP 99/61
--- NOTE | 2018-11-18 20:44 | NUR ---
EKG MELANY called for 6 count run of V-tach. EKG was performed and in the chart. Vital signs are heart rate 75, blood pressure 99/81 mmHg, oxygenation 100% on 3L, respiration rate 17, temp 97.7. The patient is asymptomatic. Patient has a cardio consult with Kevin. Will continue to monitor.
[2018-11-18] MEDS: CARVEDILOL 3.125 MG TAB PO SCH (21:30)
[2018-11-18] MEDS: ATORVASTATIN 20 MG TAB PO SCH (21:32)
[2018-11-18 22:00] VITALS: BP 99/61
--- NOTE | 2018-11-19 02:45 | NUR ---
Paged Hospitalist Paged hospitalist for order for increase in pain medication. The patient is currently taking 5/325 [place] q4hrs. The pain medication is not working. The hospitalist gave an order for [place] 10/325 PO q8 hours for pain. Will continue to monitor.
[2018-11-19 05:00] VITALS: BP 89/66
[2018-11-19] MEDS: SPIRONOLACTONE 25 MG TAB PO SCH ×2 (05:51→17:48)
[2018-11-19] MEDS: FUROSEMIDE 20 MG/2 ML VIAL IV SCH ×2 (06:00→17:48)
[2018-11-19] MEDS: HYDROcodone-ACET 10/325MG TAB PO PRN ×2 (06:26→17:47)
[2018-11-19 06:27] LABS: Basophils # (auto) 0 uL; Basophils % (auto) 0.7 % (0.0-2.0); Eosinophils # (auto) 0.1 uL; Eosinophils % (auto) 1.9 % (0.0-7.0); Hematocrit 38.8 % (36.0-46.0); Hemoglobin 12.9 g/dL (12.2-16.2); Lymphocytes # (auto) 1.5 uL; Lymphocytes % (auto) 39.8 % (10.0-50.0); Mean Corpuscular Hemoglobin 31.6 pg (28.0-32.0); Mean Corpuscular Hgb Conc. 33.2 g/dL (32.0-36.0); Mean Corpuscular Volume 95.2 fL (80.0-100.0); Monocytes # (auto) 0.5 uL; Neutrophils # (auto) 1.6 uL; Neutrophils % (auto) 43.6 % (37.0-80.0); Nucleated Red Blood Cells % 0.2 %; Platelet Count (auto) 168 10^3/uL (140-450); Red Blood Cells 4.08 10^6/uL (4.0-5.20); Red Cell Distribution Width 16.6 % (11.8-14.3); White Blood Cell 3.8 10^3/uL (4.4-10.8)
[2018-11-19 06:46] LABS: Albumin 3.2 g/dL (3.4-5.0); Anion Gap 8 (5-15); BUN/Creatinine Ratio 18.4; Blood Urea Nitrogen 21 mg/dL (7-18); Calcium 8.8 mg/dL (8.5-10.1); Carbon Dioxide 27 mmol/L (21-32); Chloride 105 mmol/L (98-107); GFR Non-African American 54 mL/min; Glucose 86 mg/dL (74-106); Potassium 3.4 mmol/L (3.5-5.1); Sodium 140 mmol/L (136-145)
[2018-11-19 07:14] LABS: Alanine Aminotransferase 22 U/L (13-56); Alkaline Phosphatase 134 U/L (45-117); Aspartate Aminotransferase 28 U/L (15-37); Bilirubin, Total 0.9 mg/dL (0.2-1.0); Total Protein 5.8 g/dL (6.4-8.2)
--- NOTE | 2018-11-19 07:15 | NUR ---
OPENING SHIFT NOTE ASSUMED CARE OF PATIENT FROM DAY SHIFT RN PARVEZ. PATIENT IS AWAKE, ALERT, AND SITTING UP IN BED TALKING ON HER CELL PHONE. EVEN AND UNLABORED RESPIRATIONS WITH NO S/S OF DISTRESS OR PAIN AT THIS TIME. BED IS LOW, LOCKED, AND CALL LIGHT IS IN REACH. INSTRUCTED ON POC. ANSWERED QUESTIONS AND ADDRESSED CONCERNS. INSTRUCTED TO CALL WHEN NEEDED. WILL CONTINUE TO MONITOR.
[2018-11-19 07:21] LABS: GFR African American > 60 mL/min
--- NOTE | 2018-11-19 07:50 | NUR ---
Patient in bed, asleep. No acute distress noted.
[2018-11-19 08:00] VITALS: BP 83/61
--- NOTE | 2018-11-19 09:42 | NUR ---
Patient in bed, awake, lethargic, oriented x4. No acute distress noted.
[2018-11-19] MEDS: CLOPIDOGREL BISULFATE 75 MG TAB PO SCH (10:00)
[2018-11-19] MEDS: METOPROLOL TARTRATE 25 MG TAB PO SCH ×2 (10:00→22:00)
[2018-11-19] MEDS: PANTOPRAZOLE 40 MG TAB PO SCH (10:00)
[2018-11-19] MEDS: ASPirin 81 mg TAB PO SCH (10:00)
[2018-11-19] MEDS: CARVEDILOL 3.125 MG TAB PO SCH ×2 (10:00→22:00)
--- NOTE | 2018-11-19 10:28 | NUR ---
Patient is upset, complained of pain. Explained to patient she's not due for Blanket pill yet. Patient refused Tylenol, verbalized "It's not gonna work." Patient refused Protonix, Aspirin and Plavix. Anti-hypertensive medication not given due to decreased blood pressure. Will inform hospitalist.
[2018-11-19 12:00] VITALS: BP 90/61
--- NOTE | 2018-11-19 12:38 | NUR ---
Dr. Stewart at bedside. made aware patient complained of pain, Logan pill as ordered is Q8 PRN, decreased BP. Dr. Stewart ordered to let the patient ambulate as tolerated. Patient stated she feels weak. MD ordered to follow up with Ike Bourgeois for Cardiology Consult.
--- NOTE | 2018-11-19 12:42 | NUR ---
Called Ike Bourgeois regarding patient's Cardiology Consult.
[2018-11-19 16:00] VITALS: BP 92/75
--- NOTE | 2018-11-19 17:47 | NUR ---
Patient sitting in bed, stated she's in pain. [place] 10/325 PO given as ordered.
--- NOTE | 2018-11-19 21:45 | NUR ---
RUN OF VTACH/EKG MELANY called for 7 count run of V-tach. EKG was performed and in the chart. Vital signs P 68BPM, BP 96/87 mmHg, oxygenation 97% on 3L, R 17, T 97.8. Patient states tight non-radiating chest pain of 8. Nitro SL administered. Vital signs retaken in ten minutes BP 100/67 mmhg, P 64, R 18, T 97.8 with tight non-radiating chest pain stated by patient of 7. Patient refused second dose of nitro stating she has been having runs of vtach all day and that she feels fine. However, she still states chest pain of 7. Patient educated on what chest pain means and risks of not taking second dose. Patient verbalized understanding. Patient has a cardio consult with Kevin. Will continue to monitor.
[2018-11-19] MEDS: ATORVASTATIN 20 MG TAB PO SCH (21:51)
--- NOTE | 2018-11-20 02:35 | NUR ---
HOSPITALIST JAMIA RETURNED CALL COMPUTER BUILDER JAMIA NOTIFIED THAT MELANY HAS CALLED TO REPORT THAT THE PATIENT HAS BEEN HAVING MORE FREQUENT RUNS OF VTACH. NOTIFIED THAT PATIENT DENIES ANY CHEST PAIN AT THIS TIME, IS ASYMPTOMATIC WITH VITALS AT NORMAL BASELINE VALUES. ORDERS TO MONITOR RECEIVED.
[2018-11-20 05:58] VITALS: BP 95/63
[2018-11-20] MEDS: FUROSEMIDE 20 MG/2 ML VIAL IV SCH ×2 (06:00→17:16)
[2018-11-20] MEDS: SPIRONOLACTONE 25 MG TAB PO SCH ×2 (06:00→18:00)
--- NOTE | 2018-11-20 07:30 | NUR ---
Patient in bed asleep. No acute distress noted.
--- NOTE | 2018-11-20 07:30 | NUR ---
CLOSING NOTE PATIENT IS RESTING IN BED EYES CLOSED. EVEN AND UNLABORED RESPIRATIONS. PATIENT DENIES ANY CHEST PAIN AT THIS TIME. NO S/S OF DISTRESS . BED LOW, LOCKED, AND CALL LIGHT IS IN PLACE. O2 ON AT 21/2 L. SIDE RAILS UP X2. CARE TRANSFERRED TO DAY SHIFT RN
[2018-11-20 09:32] VITALS: BP 91/73
[2018-11-20] MEDS: CARVEDILOL 3.125 MG TAB PO SCH (10:00)
[2018-11-20] MEDS ORDERED: ENOXAPARIN SOD 40 MG/0.4 ML SYRINGE SC SCH (10:00)
[2018-11-20] MEDS: PANTOPRAZOLE 40 MG TAB PO SCH (10:00)
[2018-11-20] MEDS: METOPROLOL TARTRATE 25 MG TAB PO SCH (10:00)
--- NOTE | 2018-11-20 10:48 | NUR ---
Dr. Stewart made aware of patient's episodes of V-Tach and low Potassium level. MD said he put in order for Potassium.
--- NOTE | 2018-11-20 10:50 | NUR ---
Called Ike Bourgeois regarding episodes of V-Tach. said he will come over to see the patient.
[2018-11-20] MEDS: ASPirin 81 mg TAB PO SCH (11:08)
[2018-11-20] MEDS: CLOPIDOGREL BISULFATE 75 MG TAB PO SCH (11:08)
--- NOTE | 2018-11-20 11:08 | NUR ---
Patient stated Dr. Stewart came over, explained to her the possibility of pacemaker placement, but she's not comfortable having a pacemaker. Explained to patient Ike Bourgeois said he's coming over to see her for Cardiology Consult.
--- NOTE | 2018-11-20 12:55 | NUR ---
Patient requested to go downstairs with her daughter. Explained the risks and benefits, patient stated she will not smoke, patient signed the AMA form. Explained to patient she can be off unit not beyond 30 minutes, only within hospital premises. Wheelchair provided.
[2018-11-20 12:58] VITALS: BP 108/83
--- NOTE | 2018-11-20 13:45 | NUR ---
Ike Bourgeois at bedside. made aware patient has episodes of V-Tach, low SBP in the 80s to 90s.
[2018-11-20 16:59] VITALS: BP 104/73
--- NOTE | 2018-11-20 17:40 | NUR ---
Patent is upset, stated the doctor has not come in to see her, that the doctor has not came back to see her. Explained to patient Dr. Stewart came over to see her today, and Ike Bourgeois came to see her this afternoon for Cardiology Consult. Patient wants to leave the hospital.
--- NOTE | 2018-11-20 17:40 | NUR ---
Explained to patient the risks and benefits of leaving Against Medical Advice (AMA), patient insisted of leaving AMA. Patient signed the AMA form.
--- NOTE | 2018-11-20 18:01 | NUR ---
Called Ike Bourgeois that patient insisted of leaving the hospital Against Medical Advice (AMA). Patient signed the AMA form.
--- NOTE | 2018-11-20 18:20 | NUR ---
AMA Note MULUGETA MCDONNELL states she wants to leave the hospital Against Medical Advice (AMA). Patient encouraged to stay for further treatment/stabilization. April Sharif MD notified of patient's wishes. Patient advised of the risks and benefits of leaving AMA. Patient verbalized understanding. IV line removed, IV catheter intact, pressure dressing applied. Patient encouraged to return to the ER if symptoms do not improve or worsen.
== END 2018-11-20 18:20 | disposition left against medical advice (07) | DRG 194 ==
LOC: ER 02:06 → TELE 05:37 → TELE-EAST 19:04
PROVIDERS: ADMIT Nurse Practitioner; ATTEND Internal Medicine
DX: I13.0 Hypertensive heart and chronic kidney disease with heart failure and stage 1 through stage 4 chronic kidney disease, or unspecified chronic kidney disease (principal); I47.2 Ventricular tachycardia; N17.9 Acute kidney failure, unspecified; I95.9 Hypotension, unspecified; I27.20 Pulmonary hypertension, unspecified; I08.3 Combined rheumatic disorders of mitral, aortic and tricuspid valves; I42.9 Cardiomyopathy, unspecified; I50.43 Acute on chronic combined systolic (congestive) and diastolic (congestive) heart failure; N39.0 Urinary tract infection, site not specified; I25.10 Atherosclerotic heart disease of native coronary artery without angina pectoris; I45.9 Conduction disorder, unspecified; I50.82 Biventricular heart failure; J44.9 Chronic obstructive pulmonary disease, unspecified; N18.9 Chronic kidney disease, unspecified; Z82.49 Family history of ischemic heart disease and other diseases of the circulatory system; I25.2 Old myocardial infarction; Z86.73 Personal history of transient ischemic attack (TIA), and cerebral infarction without residual deficits; Z88.1 Allergy status to other antibiotic agents
CPT/HCPCS: 36415; 71045; 80048; 80053; 81001; 83880; 84484; 85025; 93005; 94761; 96365; 96375; G0378; J0696; J2405

== ENCOUNTER 2018-12-09 05:14 | Inpatient (IN) | payer MEDICAID | END 2018-12-17 14:30 | disposition home health service (06) | LOC: TELE-WESTW 12-14 02:40 → ER 05:14 → OVERFLOW 07:50 | DX: I21.4 Non-ST elevation (NSTEMI) myocardial infarction (principal); N17.0 Acute kidney failure with tubular necrosis; J96.20 Acute and chronic respiratory failure, unspecified whether with hypoxia or hypercapnia; I50.43 Acute on chronic combined systolic (congestive) and diastolic (congestive) heart failure; I47.2 Ventricular tachycardia; I95.9 Hypotension, unspecified; I27.20 Pulmonary hypertension, unspecified; N18.3 Chronic kidney disease, stage 3 (moderate); C90.00 Multiple myeloma not having achieved remission; I31.3 Pericardial effusion (noninflammatory); I13.0 Hypertensive heart and chronic kidney disease with heart failure and stage 1 through stage 4 chronic kidney disease, or unspecified chronic kidney disease; I25.10 Atherosclerotic heart disease of native coronary artery without angina pectoris; Z82.49 Family history of ischemic heart disease and other diseases of the circulatory system; Z95.5 Presence of coronary angioplasty implant and graft; Z86.73 Personal history of transient ischemic attack (TIA), and cerebral infarction without residual deficits; I25.5 Ischemic cardiomyopathy; G40.909 Epilepsy, unspecified, not intractable, without status epilepticus ==

== ENCOUNTER 2019-06-06 14:03 | Inpatient (IN) | payer MEDICAID ==
[~2019-06-06] VITALS: Ht 160 cm; Wt 65.4 kg
[~2019-06-06 14:03] MED LIST changes: -ACET1SOL8 PO; +AMIO200T4 PO; +ATOR40TA52 PO; +BUME1TAB28 PO; -GEMF600T7 PO; +MAGN400T5 PO; +MID10T PO; -MIRT30TA PO; +POTA10TA51 PO; +SACU1TAB PO
[2019-06-06] MEDS ORDERED: methylPREDNISolone SOD SUCC 125 MG/2 ML VL IV ONE (15:30)
[2019-06-06] MEDS ORDERED: ALBUTEROL SULF 2.5 MG/0.5ML(0.5%) NEB SOLN HHN ONE (15:30)
[2019-06-06] MEDS ORDERED: IPRATROPIUM BROM 0.5 MG/2.5ML INH SOL HHN ONE (15:30)
[2019-06-06 16:16] LABS: Basophils # (auto) 0.1 uL; Basophils % (auto) 0.8 % (0.0-2.0); Eosinophils # (auto) 0 uL; Eosinophils % (auto) 0.2 % (0.0-7.0); Hematocrit 49.7 % (36.0-46.0); Hemoglobin 16.1 g/dL (12.2-16.2); Lymphocytes # (auto) 1.7 uL; Lymphocytes % (auto) 19.9 % (10.0-50.0); Mean Corpuscular Hemoglobin 31.1 pg (28.0-32.0); Mean Corpuscular Hgb Conc. 32.4 g/dL (32.0-36.0); Neutrophils # (auto) 5.6 uL; Neutrophils % (auto) 67.1 % (37.0-80.0); Nucleated Red Blood Cells % 0.3 %; Platelet Count (auto) 221 10^3/uL (140-450); Red Blood Cells 5.18 10^6/uL (4.0-5.20); Red Cell Distribution Width 18.5 % (11.8-14.3); White Blood Cell 8.3 10^3/uL (4.4-10.8)
[2019-06-06 16:24] LABS: Albumin 3.6 g/dL (3.4-5.0); Calcium 9.4 mg/dL (8.5-10.1); Magnesium 2.3 mg/dL (1.6-2.6); Potassium 3.7 mmol/L (3.5-5.1)
[2019-06-06 16:31] LABS: Bilirubin, Total 1.7 mg/dL (0.2-1.0); Total Protein 6.8 g/dL (6.4-8.2)
[2019-06-06] MEDS ORDERED: FUROSEMIDE 40 MG/4 ML VIAL IV ONE (17:30)
[2019-06-06] MEDS ORDERED: ALBUTEROL SULF 2.5 MG/0.5ML(0.5%) NEB SOLN NEB PRN (19:00)
[2019-06-06] MEDS ORDERED: IPRATROPIUM BROM 0.5 MG/2.5ML INH SOL NEB PRN (19:00)
[2019-06-06] MEDS ORDERED: MORPHINE SULF INJ 2 MG/ML SYRINGE 1ML IV PRN (19:00)
[2019-06-06] MEDS ORDERED: NITROGLYCERIN 0.4 MG SL TAB SL PRN (19:00)
--- NOTE | 2019-06-06 19:15 | NUR ---
Respiratory note: NO PRN TX GIVEN AT THIS TIME, NO SOB NOTED. PT AWAKE AND ALERT, SPO2 96% ON 2L NC, HR 65, RR 20.
[2019-06-06 21:33] VITALS: BP 117/86
--- NOTE | 2019-06-06 21:40 | NUR ---
Telemetry admit from ER KECIAJAMALARISTIDESDa admitted to Telemetry unit after SBAR received. Patient oriented to LOPEZ COVINGTON, primary RN, unit, room, bed, and unit policies regarding patient care and visiting hours. Patient now on continuous telemetry monitoring, tele box # 40 and telemetry reading on arrival to unit is SINUS RHYTHM AT 66BPM. Patient on room air, weighed by bedscale and encouraged to call if they need something. All questions and concerns addressed, patient verbalized understanding.
[2019-06-06 22:00] VITALS: BP 116/82
[2019-06-06] MEDS ORDERED: ATORVASTATIN 20 MG TAB PO SCH (22:00)
--- NOTE | 2019-06-06 22:30 | NUR ---
SHORT A FIB EPISODE AT 105 BPM MELANY CALLED IN REGARDS OF SHORT AFIB EPISODE, PATIENT RESTING IN BED WITH FAMILY AT BED SIDE. STATES PAIN AT A RATING 0F 6/10 DESCRIBED CHRONIC BACK PAIN. NO PRN AVAILABLE. WILL PAGE HOSPITALIST FOR ORDERS.
[2019-06-06] MEDS: AMIODARONE HCL 200 MG TAB PO SCH (22:48)
[2019-06-06] MEDS: SACUBITRIL-VALSARTAN 24mg/26mg TAB PO SCH (22:48)
[2019-06-06] MEDS: ATORVASTATIN 20 MG TAB PO SCH (22:49)
[2019-06-06] MEDS: POTASSIUM CHL 10 Meq TABLET PO SCH (22:49)
[2019-06-07] VITALS (7 sets, daily range): BP systolic 99–123; BP diastolic 69–88
--- NOTE | 2019-06-07 00:20 | NUR ---
PAGED DR Ryder PALMER FOR ORDERS FOR PAIN. NEW ORDERS RECEIVED. READ BACK AND VERIFIED.
[2019-06-07] MEDS: MORPHINE SULFATE 4 MG/ML SYR/VIAL IV PRN ×3 (00:30→21:00)
--- NOTE | 2019-06-07 01:50 | NUR ---
ROUNDS PATIENT RESTING IN BED COMFORTABLY, WITH EVEN AND UNLABORED RESPIRATIONS OF 18 BPM, SO S/S OF PAIN OR DISTRESS. BED AT ITS LOWEST POSITION, CALL LIGHT WITHIN REACH. WILL CONTINUE TO MONITOR.
[2019-06-07] MEDS: MIDODRINE HCL 10 MG TAB PO SCH ×3 (06:15→17:50)
[2019-06-07 06:53] LABS: BUN/Creatinine Ratio 13.1; Calcium 9.7 mg/dL (8.5-10.1); Potassium 4.5 mmol/L (3.5-5.1)
--- NOTE | 2019-06-07 07:30 | NUR ---
Opening Shift Note RECEIVED REPORT FROM NOC RN. Assumed care of patient, awake and alert. PATIENT ON OXYGEN AT 3 LPM VIA NASAL CANNULA WITH no S/S of distress/SOB or pain. BED IN LOWEST, LOCKED POSITION WITH SIDERAILS UP x2. Instructed on POC and to call for assist PRN, will continue to monitor for changes Q1hr and PRN.
[2019-06-07] MEDS: SACUBITRIL-VALSARTAN 24mg/26mg TAB PO SCH ×2 (11:15→21:46)
[2019-06-07] MEDS: PANTOPRAZOLE 40 MG TAB PO SCH (11:15)
[2019-06-07] MEDS: ASPirin-EC 81 mg tab PO SCH (11:15)
[2019-06-07] MEDS: POTASSIUM CHL 10 Meq TABLET PO SCH ×2 (11:16→21:46)
[2019-06-07] MEDS: BUMETANIDE 1 MG TAB PO SCH (11:16)
[2019-06-07] MEDS: MAGNESIUM OXIDE 400 MG TAB PO SCH (11:16)
[2019-06-07] MEDS: FERROUS SULFATE 325 MG TAB PO SCH (11:16)
[2019-06-07] MEDS: CLOPIDOGREL BISULFATE 75 MG TAB PO SCH (11:16)
[2019-06-07] MEDS: AMIODARONE HCL 200 MG TAB PO SCH ×2 (11:17→21:46)
--- NOTE | 2019-06-07 12:00 | NUR ---
DR. Ike PALMER AT BEDSIDE. NEW ORDERS RECEIVED. BLOOD CULTURES x2. SPUTUM CULTURE WITH GS. ROCEPHIN 1 GM BID. ZITHROMAX [address] CHEST NO CONTRAST.
--- NOTE | 2019-06-07 12:57 | NUR ---
Respiratory note: PT ASSESSED FOR PRN MED NEB TX, NO TX GIVEN AT THIS TIME. PT DENIES CURRENT SOB, NO DISTRESS NOTED. PT AWAKE/ALERT TAKING ON PHONE. HR 66 RR 16 SPO2 92% ON RA BREATH SOUNDS ARE CLEAR POSTERIORLY. PT AND RN AWARE TO HAVE RT PAGED IF NEEDED.
[2019-06-07] MEDS: cefTRIAXone 1GM/50ML D5W 50 ML IV SCH ×2 (13:19→21:00)
[2019-06-07] MEDS: AZITHROMYCIN 500MG/ 250ML 250 ML IV SCH (14:14)
--- NOTE | 2019-06-07 19:05 | NUR ---
PT CHECKED FOR PRN TX. PT IS RESTING WITH NO ACUTE DISTRESS NOTED. TX IS NOT INDICATED. PT IS AWARE TO CALL IF SHE NEEDS TX. HR 64 RR 18 POX 95% B/S CLEAR BUT DECREASED.
--- NOTE | 2019-06-07 19:30 | NUR ---
Opening Shift Note Assumed care of patient, resting in bed comfortably with no S/S of distress/SOB or pain. Instructed on POC and to call for assist PRN, will continue to monitor for changes Q1hr and PRN. Call light within reach.
[2019-06-07] MEDS: ATORVASTATIN 20 MG TAB PO SCH (21:47)
--- NOTE | 2019-06-08 01:50 | NUR ---
ROUNDS PATIENT RESTING IN BED COMFORTABLY, NO S/S OF PAIN/DISTRESS NOTED. CALL LIGHT WITHIN REACH.
[2019-06-08 05:00] VITALS: BP 101/57
[2019-06-08] MEDS: MIDODRINE HCL 10 MG TAB PO SCH ×3 (05:55→19:09)
[2019-06-08 06:27] LABS: BUN/Creatinine Ratio 19.5; Calcium 8.9 mg/dL (8.5-10.1); Potassium 4.2 mmol/L (3.5-5.1)
--- NOTE | 2019-06-08 07:45 | NUR ---
OPENING SHIFT NOTE: Received report from NOC RNJeannine. Assumed care of patient. Patient is resting in bed, states pain is 5/10 in back and is tolerable. No request for pain medication at this time. Bed in lowest position, rails x2 up and call light within reach. Updated on plan of care. Will continue to monitor.
[2019-06-08 09:00] VITALS: BP 91/64
[2019-06-08] MEDS: cefTRIAXone 1GM/50ML D5W 50 ML IV SCH ×2 (09:33→20:28)
[2019-06-08] MEDS: AZITHROMYCIN 500MG/ 250ML 250 ML IV SCH (10:33)
[2019-06-08] MEDS: ASPirin-EC 81 mg tab PO SCH (10:34)
[2019-06-08] MEDS: BUMETANIDE 1 MG TAB PO SCH (10:34)
[2019-06-08] MEDS: CLOPIDOGREL BISULFATE 75 MG TAB PO SCH (10:35)
[2019-06-08] MEDS: SACUBITRIL-VALSARTAN 24mg/26mg TAB PO SCH ×2 (10:35→22:00)
[2019-06-08] MEDS: PANTOPRAZOLE 40 MG TAB PO SCH (10:35)
[2019-06-08] MEDS: POTASSIUM CHL 10 Meq TABLET PO SCH ×2 (10:35→22:17)
[2019-06-08] MEDS: AMIODARONE HCL 200 MG TAB PO SCH ×2 (10:35→22:17)
[2019-06-08] MEDS: FERROUS SULFATE 325 MG TAB PO SCH (10:36)
--- NOTE | 2019-06-08 10:36 | NUR ---
Respiratory note: PT ASSESSED FOR PRN MED NEB TX. TX IS NOT INDICATED AT THIS TIME. PT APPEARS TO BE BREATHING COMFORTABLY ON A 2L NC WITH A POX OF 95%, HR 64, RR 16. B/S ARE CLEAR THROUGHOUT POSTERIORLY. PT IS AWARE TO PRESS THE CALL LIGHT AND TO NOTIFY STAFF IF SHE'S HAVING ANY DIFFICULTY BREATHING SO SHE CAN RECEIVE A MED NEB TX.
[2019-06-08] MEDS: MAGNESIUM OXIDE 400 MG TAB PO SCH (10:41)
[2019-06-08 13:00] VITALS: BP 95/65
--- NOTE | 2019-06-08 13:55 | NUR ---
MD: Dr Ryder Sharif at bedside to see patient. MD ordered radiology consult for bilateral thoracentesis. Orders received to hold blood thinners. Ultrasound made aware of hold of blood thinners. Will check labs on Thursday and try thoracentesis if labs ok.
[2019-06-08 16:53] VITALS: BP 81/55
--- NOTE | 2019-06-08 19:00 | NUR ---
pt assessed for prn tx. pt denies any sob. tx is not indicated at this time. Pt is aware to page if she becomes sob or tx needed. hr 60 rr 18 pxo 90% b/s clear.
--- NOTE | 2019-06-08 19:15 | NUR ---
CLOSING SHIFT NOTE: Report given to NOC RN. Endorsed care of patient.
--- NOTE | 2019-06-08 19:25 | NUR ---
Opening Shift Note Assumed care of patient, awake and alert. No S/S of distress/SOB or pain. Instructed on POC and to call for assist PRN, will continue to monitor for changes Q1hr and PRN.
[2019-06-08 22:00] VITALS: BP 98/71
[2019-06-08] MEDS: ATORVASTATIN 20 MG TAB PO SCH (22:17)
[2019-06-08] MEDS: MORPHINE SULFATE 4 MG/ML SYR/VIAL IV PRN (22:18)
[2019-06-08 23:00] VITALS: BP 101/66
[2019-06-09 05:00] VITALS: BP 91/61
[2019-06-09] MEDS: MIDODRINE HCL 10 MG TAB PO SCH ×3 (06:17→18:26)
[2019-06-09 06:52] LABS: BUN/Creatinine Ratio 17.1; Calcium 8.2 mg/dL (8.5-10.1)
[2019-06-09 09:00] VITALS: BP 113/71
[2019-06-09] MEDS: cefTRIAXone 1GM/50ML D5W 50 ML IV SCH ×2 (09:30→21:51)
[2019-06-09] MEDS: POTASSIUM CHL 10 Meq TABLET PO SCH ×2 (10:47→21:53)
[2019-06-09] MEDS: AMIODARONE HCL 200 MG TAB PO SCH ×2 (10:48→21:52)
[2019-06-09] MEDS: SACUBITRIL-VALSARTAN 24mg/26mg TAB PO SCH ×2 (10:48→21:53)
[2019-06-09] MEDS: PANTOPRAZOLE 40 MG TAB PO SCH (10:48)
[2019-06-09] MEDS: BUMETANIDE 1 MG TAB PO SCH (10:48)
[2019-06-09] MEDS: MAGNESIUM OXIDE 400 MG TAB PO SCH (10:49)
[2019-06-09] MEDS: FERROUS SULFATE 325 MG TAB PO SCH (10:49)
[2019-06-09] MEDS: AZITHROMYCIN 500MG/ 250ML 250 ML IV SCH (10:56)
[2019-06-09] MEDS: MORPHINE SULFATE 4 MG/ML SYR/VIAL IV PRN ×2 (11:03→16:50)
--- NOTE | 2019-06-09 12:56 | NUR ---
RN called to room. Patient in restroom throwing up. Emesis is yellow clear fluid. Patient with no antiemtic order. T/C to Dr Ryder Sharif and orders received.
[2019-06-09 12:58] VITALS: BP 119/66
[2019-06-09] MEDS: ONDANSETRON HCL 4 MG/2 ML VIAL IV PRN ×2 (13:13→16:50)
--- NOTE | 2019-06-09 14:28 | NUR ---
RT NOTE: WENT TO PTS ROOM TO ASSESS FOR PRN BREATHING TX, PT SITTING UP IN BED. NO S/S OF SOB, HR 16, HR 60, SPO2 95% ON RA, RR 16, WILL CONTINUE TO MONITOR PT. Addendum: 06/09/19 at 1443 by ROMINA KAUFMAN RT IN CORRECT CHARTING OF HR, HR IS 60 NOT 16.
[2019-06-09 17:00] VITALS: BP 101/69
--- NOTE | 2019-06-09 19:00 | NUR ---
CLOSING SHIFT NOTE: Report given to NOC Parrish RODRIGUEZ. Endorsed care of patient.
--- NOTE | 2019-06-09 19:37 | NUR ---
RESP NOTE: PRN MED NEB ASSESSMENT. PT DENIES SOB NO DISTRESS NOTED AT THIS TIME. POX 94% ON 3L NC HR 63 RR 20. BS ARE CLEAR AND DIMINISHED. TX NOT GIVEN.
[2019-06-09 20:00] VITALS: BP 101/69
--- NOTE | 2019-06-09 20:00 | NUR ---
OPENING NOTE RECEIVED REPORT FROM DAYSHIFT RN. ASSUMING ROLE OF CARE OF PATIENT AT THIS TIME. PATIENT SHOWING NO SIGN OF DISTRESS, SHORTNESS OF BREATH, AND PATIENT DENIES ANY PAIN AT THIS TIME. PATIENT EDUCATED ON PLAN OF CARE FOR THE NIGHT AND PATIENT VERBALIZED UNDERSTANDING. BED LOWERED, CALL LIGHT WITHIN REACH, AND PATIENT WILL BE ROUNDED ON EVERY HOUR AND NEEDED.
--- NOTE | 2019-06-09 20:00 | NUR ---
MD Noemí PALMER AT PATIENT BEDSIDE MD INFORMED ABOUT PATIENT'S CREATININE AND PATIENT'S SWELLING. PLACED ORDERS. ORDERS CONFIRMED WITH Ike PALMER. ORDERS PLACED AT THIS TIME.
--- NOTE | 2019-06-09 21:00 | NUR ---
IV insertion IV access obtained, via clean sterile technique by inserting 22 gauge catheter at LEFT FOREARM after 6 attempt(s). IV secured properly. No trauma to site. Patient tolerated well. NOTE: [] Addendum: 06/10/19 at 1212 by Chely Awad RN SPECIMEN SENT TO LABORATORY
[2019-06-09] MEDS: HYDROmorphone HCL 2 MG/ML VL IV PRN (21:04)
[2019-06-09] MEDS: ATORVASTATIN 20 MG TAB PO SCH (21:53)
[2019-06-09 22:00] VITALS: BP 107/79
[2019-06-09] MEDS: DOBUTamine 1000MCG/ML 250 ML IV SCH (22:00)
[2019-06-09] MEDS: FUROSEMIDE INJECTION 100 MG in D5W 5% 90 ML IV SCH (22:00)
[2019-06-10] MEDS: HYDROmorphone HCL 2 MG/ML VL IV PRN ×4 (00:20→22:22)
[2019-06-10 05:00] VITALS: BP 93/62
[2019-06-10] MEDS: MIDODRINE HCL 10 MG TAB PO SCH ×3 (06:00→18:54)
[2019-06-10 07:53] LABS: INR 1.13 (0.9-1.15); Partial Thromboplastin Time 26.3 sec (23.64-32.05)
[2019-06-10 08:00] VITALS: BP 100/72
[2019-06-10] MEDS: cefTRIAXone 1GM/50ML D5W 50 ML IV SCH ×2 (09:10→20:59)
[2019-06-10] MEDS ORDERED: LIDOCAINE 1% (LOCAL ANESTH.) PF 5ml SDV ONE (10:28)
--- NOTE | 2019-06-10 10:45 | NUR ---
THORACENTESIS DONE BY DR. Nohemi GARCIA WITH 750 MLS OUTPUT. POST OP DRESSING APPLIED TO INCISION SITE, RIGHT LOWER POSTERIOR CHEST. DR. Ike PALMER ORDERED TO SEND FLUID FOR CYTOLOGY, GLUCOSE, CULTURE AND SENSITIVITY, PROTEIN BODY AND CELL COUNT, ORDERS READ BACK AND CARRIED OUT.
[2019-06-10] MEDS: FERROUS SULFATE 325 MG TAB PO SCH (11:14)
[2019-06-10] MEDS: MAGNESIUM OXIDE 400 MG TAB PO SCH (11:14)
[2019-06-10] MEDS: AZITHROMYCIN 500MG/ 250ML 250 ML IV SCH (11:14)
[2019-06-10] MEDS: AMIODARONE HCL 200 MG TAB PO SCH ×2 (11:14→22:21)
[2019-06-10] MEDS: PANTOPRAZOLE 40 MG TAB PO SCH (11:14)
[2019-06-10] MEDS: SACUBITRIL-VALSARTAN 24mg/26mg TAB PO SCH ×2 (11:15→22:21)
[2019-06-10] MEDS: POTASSIUM CHL 10 Meq TABLET PO SCH ×2 (11:15→22:21)
[2019-06-10 13:00] VITALS: BP 116/80
--- NOTE | 2019-06-10 13:00 | NUR ---
Estimated needs based on AJBW 66 kg for wt. maintenance 3737-6960 kcal (23-25 kcal/kg) 53-66 g(0.8-1.0 g/kg) Addendum: 06/10/19 at [address] Amended: Links added.
--- NOTE | 2019-06-10 15:10 | NUR ---
Respiratory note: PRN MEDNEB CHECK. TX NOT INDICATED AT THIS TIME. SPO2 99% ON RA HR 69 RR 16 B/S DIMINISHED. PT AWARE TO HAVE RT PAGED IF THEY BECOME SOB.
[2019-06-10] MEDS: DOBUTamine 1000MCG/ML 250 ML IV SCH ×2 (15:23→20:59)
[2019-06-10 17:00] VITALS: BP 101/75
--- NOTE | 2019-06-10 17:30 | NUR ---
PT SEEN BY DR. PALMER, NO FURTHER ORDER
[2019-06-10] MEDS: FUROSEMIDE INJECTION 100 MG in D5W 5% 90 ML IV SCH (18:55)
[2019-06-10 22:00] VITALS: BP 109/67
[2019-06-10] MEDS: ATORVASTATIN 20 MG TAB PO SCH (22:22)
[2019-06-11 05:00] VITALS: BP 108/64
[2019-06-11] MEDS: MIDODRINE HCL 10 MG TAB PO SCH ×3 (06:11→17:40)
[2019-06-11] MEDS: cefTRIAXone 1GM/50ML D5W 50 ML IV SCH ×2 (09:05→20:59)
[2019-06-11] MEDS: DOBUTamine 1000MCG/ML 250 ML IV SCH ×2 (09:15→20:59)
[2019-06-11 09:36] VITALS: BP 99/66
[2019-06-11] MEDS: AZITHROMYCIN 500MG/ 250ML 250 ML IV SCH (10:38)
[2019-06-11] MEDS: POTASSIUM CHL 10 Meq TABLET PO SCH ×2 (10:58→22:26)
[2019-06-11] MEDS: MAGNESIUM OXIDE 400 MG TAB PO SCH (10:58)
[2019-06-11] MEDS: SACUBITRIL-VALSARTAN 24mg/26mg TAB PO SCH ×2 (10:58→22:26)
[2019-06-11] MEDS: HYDROmorphone HCL 2 MG/ML VL IV PRN ×2 (10:58→22:26)
[2019-06-11] MEDS: FERROUS SULFATE 325 MG TAB PO SCH (10:58)
[2019-06-11] MEDS: PANTOPRAZOLE 40 MG TAB PO SCH (10:58)
[2019-06-11 10:59] VITALS: BP 101/70
[2019-06-11] MEDS: AMIODARONE HCL 200 MG TAB PO SCH ×2 (10:59→22:25)
--- NOTE | 2019-06-11 12:06 | NUR ---
ASSESSED PT FOR PRN MED NEB, PT ON RA WITH SPO2 90%, HR86, RR20 WITH CLEAR/DIMINISHED BS. PT TALKING ON THE PHONE. SHE SAID SHE FEELS GOOD. NO SOB NOTED, NO DISTRESS NOTED. WILL CONTINUE TO MONITOR PT.
--- NOTE | 2019-06-11 12:45 | NUR ---
pt seen by Dr. Sharif, ordered follow up chest xray tomorrow.
[2019-06-11 13:00] VITALS: BP 101/70
[2019-06-11] MEDS: FUROSEMIDE INJECTION 100 MG in D5W 5% 90 ML IV SCH (16:46)
[2019-06-11 17:29] VITALS: BP 124/87
--- NOTE | 2019-06-11 19:05 | NUR ---
RT NOTE PRN ASSESSMENT DONE PRN NOT INDICATED AT THIS TIME PT IN NO RESP DISTRESS WILL CONTINUE TO MONITOR
[2019-06-11 22:00] VITALS: BP 105/70
[2019-06-11] MEDS: ATORVASTATIN 20 MG TAB PO SCH (22:26)
[2019-06-12] MEDS: HYDROmorphone HCL 2 MG/ML VL IV PRN ×3 (03:10→19:11)
[2019-06-12 05:00] VITALS: BP 98/64
[2019-06-12] MEDS: MIDODRINE HCL 10 MG TAB PO SCH ×3 (05:18→17:35)
--- NOTE | 2019-06-12 05:45 | NUR ---
PRN MED NEB TX NOT WANTED OR INDICATED AT THIS TIME. HR 69, RR 14, SO2 94% ON RA, BS CLEAR. PT INFORMED TO HIT CALL BUTTON IF FEELING SOB OR WHEEZING. Respiratory note:
--- NOTE | 2019-06-12 07:35 | NUR ---
Opening Shift Note Assumed care of patient, asleep on bed resting comfortably. No S/S of distress/SOB or pain. Call light within reach, 2 side rails up and bed in lowest position, will continue to monitor for changes Q1hr and PRN.
--- NOTE | 2019-06-12 08:30 | NUR ---
pt refused breakfast, did not like the food.
[2019-06-12] MEDS: cefTRIAXone 1GM/50ML D5W 50 ML IV SCH ×2 (08:49→20:42)
[2019-06-12 09:00] VITALS: BP 87/57
--- NOTE | 2019-06-12 09:40 | NUR ---
pt given broth and cracker.
[2019-06-12] MEDS: SACUBITRIL-VALSARTAN 24mg/26mg TAB PO SCH ×2 (10:00→20:43)
[2019-06-12] MEDS: POTASSIUM CHL 10 Meq TABLET PO SCH ×2 (10:03→20:41)
[2019-06-12] MEDS: MAGNESIUM OXIDE 400 MG TAB PO SCH (10:03)
[2019-06-12] MEDS: FERROUS SULFATE 325 MG TAB PO SCH (10:03)
[2019-06-12] MEDS: AZITHROMYCIN 500MG/ 250ML 250 ML IV SCH (10:03)
[2019-06-12] MEDS: PANTOPRAZOLE 40 MG TAB PO SCH (10:03)
[2019-06-12] MEDS: AMIODARONE HCL 200 MG TAB PO SCH ×2 (10:28→20:43)
[2019-06-12] MEDS: DOBUTamine 1000MCG/ML 250 ML IV SCH ×2 (10:28→23:34)
--- NOTE | 2019-06-12 10:45 | NUR ---
faxed request for sandwich white bread, pt doesn't like wheat bread.
--- NOTE | 2019-06-12 12:00 | NUR ---
pt refused to eat, dietary sent her tuna sandwich with wheat bread, left a message to dietary if possible they can send another tray with white bread.
[2019-06-12 13:00] VITALS: BP 103/66
--- NOTE | 2019-06-12 16:30 | NUR ---
pt did not fill up her menu this morning because she refused her tray, called dietary to send pt a menu with the dinner tray for her to fill up.
[2019-06-12 17:11] VITALS: BP 112/73
[2019-06-12] MEDS: FUROSEMIDE INJECTION 100 MG in D5W 5% 90 ML IV SCH (17:32)
[2019-06-12 18:32] VITALS: BP 112/73
--- NOTE | 2019-06-12 18:32 | NUR ---
PT ASSESSED FOR PRN MED NEB TX. SPO2 100% ON RA, HR 77. PT DENIES ANY RESPIRATORY DISTRESS. NO TX INDICATED AT THIS TIME. PT IS AWARE TO HAVE RT PAGED IF TX NEEDED.
--- NOTE | 2019-06-12 19:30 | NUR ---
Opening Shift Note Assumed care of patient, awake and alert. No S/S of distress/SOB or pain. Instructed on POC and to call for assist PRN, will continue to monitor for changes Q1hr and PRN. Fall and safety precautions in place. Call light within reach.
--- NOTE | 2019-06-12 19:36 | NUR ---
MD Noemí Sharif at nurse's station asking about lab updates. informed, new orders received, read back and verified. Will input and carry out.
[2019-06-12] MEDS: ATORVASTATIN 20 MG TAB PO SCH (20:42)
[2019-06-12 20:56] LABS: Albumin 2.9 g/dL (3.4-5.0); Calcium 8.8 mg/dL (8.5-10.1); Magnesium 2.5 mg/dL (1.6-2.6); Potassium 3.3 mmol/L (3.5-5.1)
[2019-06-12 20:59] LABS: BUN/Creatinine Ratio 7.8; Bilirubin, Total 1.6 mg/dL (0.2-1.0); Total Protein 6.4 g/dL (6.4-8.2)
[2019-06-12 22:00] VITALS: BP 105/51
--- NOTE | 2019-06-12 23:42 | NUR ---
LAB Called and spoke with Harjinder from lab regarding Noemí Sharif's orders from earlier in shift. Informed Harjinder that ordered "renal panel," but "renal panel" was not available in orders. Harjinder stated "renal panel" is the same as "renal function test." Informed Harjinder that CMP was ordered previously and was asked if that was sufficient. Harjinder stated CMP was not sufficient and to complete renal lab work, add on order of phosphorous to blood in lab. Order put in under MD Noemí Sharif.
[2019-06-13] MEDS: HYDROmorphone HCL 2 MG/ML VL IV PRN (00:32)
[2019-06-13] MEDS: FUROSEMIDE INJECTION 100 MG in D5W 5% 90 ML IV SCH (04:00)
--- NOTE | 2019-06-13 04:04 | NUR ---
LASIX DRIP Pre-mixed bag of medication not available in medication room. Spoke with MELANY RN, who stated she will send D5W 100ml bag. Will pull lasix medication and mix medication for administration. tool designer apprentice aware
[2019-06-13] MEDS ORDERED: FUROSEMIDE INJECTION 0 ML ONE (04:06)
[2019-06-13] MEDS ORDERED: FUROSEMIDE INJECTION 10 ML ONE (04:08)
--- NOTE | 2019-06-13 04:30 | NUR ---
LASIX DRIP Current bag of lasix medication still infusing. Approximately 40ml of medication bag remaining. Called outside pharmacy to ask how long mixed medication on floor was good for. Pharmacist stated to discard any mixed medications that were done on the floor if not administered within 1 hour. Lasix medication that was overridden by battery charger wasted, battery charger aware. Mixed medication discarded in proper disposal receptacle. Current bag of lasix medication infusing at 5ml/hr as ordered. Will continue to monitor
[2019-06-13 05:00] VITALS: BP 92/62
[2019-06-13] MEDS: MIDODRINE HCL 10 MG TAB PO SCH ×2 (05:52→11:13)
--- NOTE | 2019-06-13 06:57 | NUR ---
Respiratory note: HR 74, RR 16, SPO2 94% ON RA, BS CLEAR. PRN MED NEB TX NOT INDICATED OR WANTED AT THIS TIME. PT INFORMED TO HIT CALL BUTTON IF FEELING SOB OR WHEEZING.
--- NOTE | 2019-06-13 08:37 | NUR ---
spoke to Dr. Sharif regarding discharge medication, made aware of the latest lab results, per Dr. Sharif no new medication pt will resume her home medications, he ordered to give the iv antibiotics before discharge.
[2019-06-13] MEDS: cefTRIAXone 1GM/50ML D5W 50 ML IV SCH (08:50)
[2019-06-13 09:00] VITALS: BP 96/60
[2019-06-13] MEDS: MAGNESIUM OXIDE 400 MG TAB PO SCH (09:38)
[2019-06-13] MEDS: FERROUS SULFATE 325 MG TAB PO SCH (09:38)
[2019-06-13] MEDS: POTASSIUM CHL 10 Meq TABLET PO SCH (09:38)
[2019-06-13] MEDS: PANTOPRAZOLE 40 MG TAB PO SCH (09:38)
[2019-06-13] MEDS: AZITHROMYCIN 500MG/ 250ML 250 ML IV SCH (09:38)
[2019-06-13] MEDS: SACUBITRIL-VALSARTAN 24mg/26mg TAB PO SCH (09:39)
[2019-06-13] MEDS: AMIODARONE HCL 200 MG TAB PO SCH (09:39)
[2019-06-13] MEDS: DOBUTamine 1000MCG/ML 250 ML IV SCH (09:52)
[2019-06-13 10:18] VITALS: BP 104/79
--- NOTE | 2019-06-13 13:00 | NUR ---
Discharge instructions given as ordered. Encourage to follow up with DR. Ryder PALMER ON AT 2:50PM AND DR. Noemí PALMER ON JUNE 22 AT 2:30PM as instructed. All questions and concerns addressed. Patient verbalized understanding. Medication reconciliation form completed and copy given to patient. IV removed with catheter intact, pressure dressing applied. Telemetry unit returned to ICU. Patient taken to vehicle via wheelchair with all personal belongings, accompanied by staff and family member. No distress noted at time of departure.
== END 2019-06-13 13:00 | disposition home or self-care (01) | DRG 139 ==
LOC: ER 14:03 → TELE 14:04 → TELE-WESTW 21:21
PROVIDERS: ADMIT Specialist; ATTEND Specialist
PROC: 0W993ZZ Drainage of Right Pleural Cavity, Percutaneous Approach (ICD-10-PCS; principal; 2019-06-10)
DX: J18.9 Pneumonia, unspecified organism (principal); J96.20 Acute and chronic respiratory failure, unspecified whether with hypoxia or hypercapnia; I50.43 Acute on chronic combined systolic (congestive) and diastolic (congestive) heart failure; J91.8 Pleural effusion in other conditions classified elsewhere; I13.0 Hypertensive heart and chronic kidney disease with heart failure and stage 1 through stage 4 chronic kidney disease, or unspecified chronic kidney disease; N17.9 Acute kidney failure, unspecified; C90.00 Multiple myeloma not having achieved remission; N18.3 Chronic kidney disease, stage 3 (moderate); I42.9 Cardiomyopathy, unspecified; I25.110 Atherosclerotic heart disease of native coronary artery with unstable angina pectoris; J44.0 Chronic obstructive pulmonary disease with (acute) lower respiratory infection; R62.7 Adult failure to thrive; Z86.73 Personal history of transient ischemic attack (TIA), and cerebral infarction without residual deficits; Z99.81 Dependence on supplemental oxygen; Z95.5 Presence of coronary angioplasty implant and graft; Z82.49 Family history of ischemic heart disease and other diseases of the circulatory system; Z80.7 Family history of other malignant neoplasms of lymphoid, hematopoietic and related tissues; Z79.899 Other long term (current) drug therapy; Z88.1 Allergy status to other antibiotic agents
CPT/HCPCS: 32555; 36415; 71045; 71046; 71250; 76604; 76942; 80048; 80053; 83735; 83880; 84100; 84484; 85025; 85610; 85730; 87040; 87205; 89051; 93005; 94644; 94761; 96374; 96375; G0378; J0696; J2405; J7060

== ENCOUNTER 2019-07-20 18:25 | Emergency (ER) | payer MEDICAID ==
[~2019-07-20] VITALS: Ht 160 cm; Wt 49.4 kg
[2019-07-20] MEDS ORDERED: MORPHINE SULFATE 4 MG/ML SYR/VIAL IV ONE ×2 (20:45→23:45)
[2019-07-20] MEDS ORDERED: ONDANSETRON HCL 4 MG/2 ML VIAL IV ONE (20:45)
[2019-07-20 21:57] LABS: Basophils # (auto) 0.2 uL; Basophils % (auto) 1.5 % (0.0-2.0); Eosinophils # (auto) 0.1 uL; Eosinophils % (auto) 0.9 % (0.0-7.0); Hematocrit 44.9 % (36.0-46.0); Hemoglobin 15.1 g/dL (12.2-16.2); Lymphocytes # (auto) 1.2 uL; Lymphocytes % (auto) 10.2 % (10.0-50.0); Mean Corpuscular Hemoglobin 30.7 pg (28.0-32.0); Mean Corpuscular Hgb Conc. 33.5 g/dL (32.0-36.0); Mean Corpuscular Volume 91.5 fL (80.0-100.0); Monocytes # (auto) 0.7 uL; Monocytes % (auto) 6.1 % (0.0-12.0); Neutrophils # (auto) 9.3 uL; Neutrophils % (auto) 81.3 % (37.0-80.0); Nucleated Red Blood Cells % 0.3 %; Platelet Count (auto) 150 10^3/uL (140-450); Red Blood Cells 4.91 10^6/uL (4.0-5.20); Red Cell Distribution Width 16.1 % (11.8-14.3); White Blood Cell 11.4 10^3/uL (4.4-10.8)
[2019-07-20 22:12] LABS: Partial Thromboplastin Time 24.7 sec (23.64-32.05)
[2019-07-20 22:13] LABS: Albumin 3.8 g/dL (3.4-5.0); Calcium 10.2 mg/dL (8.5-10.1); Potassium 4.2 mmol/L (3.5-5.1)
[2019-07-20 22:15] LABS: BUN/Creatinine Ratio 21.8
[2019-07-20 22:17] LABS: Bilirubin, Total 0.6 mg/dL (0.2-1.0); Total Protein 7.1 g/dL (6.4-8.2)
[2019-07-20 23:04] LABS: Alcohol, Urine < 3.0 mg/dL (0-5); Amphetamine Screen, Urine NEGATIVE (NEGATIVE); Barbiturate Scree,Urine NEGATIVE (NEGATIVE); Benzodiazephine Screen, Urine NEGATIVE (NEGATIVE); Cannabinoid Screen, Urine POSITIVE (NEGATIVE); Cocaine Screen, Urine NEGATIVE (NEGATIVE); Opiate Scree,Urine NEGATIVE (NEGATIVE); Phencyclidine Screen, Urine NEGATIVE (NEGATIVE)
[2019-07-20 23:06] LABS: Urine Bacteria NONE SEEN /hpf (None Seen); Urine Blood Negative /uL (Negative); Urine Hyaline Cast FEW /lpf (0 - 2); Urine Specific Gravity 1.009 (1.001-1.035); Urine WBC 1 /hpf (0 - 5)
[2019-07-21] MEDS ORDERED: HYDROmorphone HCL 2 MG/ML VL IV ONE (01:15)
[2019-07-21 01:38] VITALS: BP 97/63
== END 2019-07-21 01:46 | disposition short-term general hospital (02) ==
LOC: EDBD 18:25 → EDUNIT# 18:25 → ER 18:31
DX: S72.145A Nondisplaced intertrochanteric fracture of left femur, initial encounter for closed fracture (principal); I21.4 Non-ST elevation (NSTEMI) myocardial infarction; I13.0 Hypertensive heart and chronic kidney disease with heart failure and stage 1 through stage 4 chronic kidney disease, or unspecified chronic kidney disease; N18.9 Chronic kidney disease, unspecified; I50.9 Heart failure, unspecified; I25.10 Atherosclerotic heart disease of native coronary artery without angina pectoris; J44.9 Chronic obstructive pulmonary disease, unspecified; Z88.1 Allergy status to other antibiotic agents; Z79.82 Long term (current) use of aspirin; Z79.899 Other long term (current) drug therapy; Z86.73 Personal history of transient ischemic attack (TIA), and cerebral infarction without residual deficits; Y08.89XA Assault by other specified means, initial encounter; X58.XXXA Exposure to other specified factors, initial encounter; Y93.89 Activity, other specified; Y99.8 Other external cause status; Y92.481 Parking lot as the place of occurrence of the external cause
CPT/HCPCS: 36415; 70450; 70486; 71045; 72192; 80053; 80307; 81001; 83880; 84484; 85025; 85610; 85730; 93005; 96374; 96375; 96376; 99285; J1170; J2270; J2405